=== PATIENT | female | born 1955 | race Caucasian/White ===

== ENCOUNTER 2017-01-14 14:34 | Outpatient (CLI) | payer MEDICARE ==
--- NOTE | 2017-01-14 16:27 | RAD ---
KUB: Date: 01/14/17 COMPARISON: 03/05/15. HISTORY: Nephrolithiasis. FINDINGS: Large volume stool is seen throughout the colon, limiting assessment of the renal shadows. The rectu m appears filled and expanded with stool, which may signify fecal impaction. There is degenerative c hange involving bilateral hips. Catheter tubing overlies the lower pelvis, incompletely imaged. No o bvious calcification overlies either renal shadow. IMPRESSION: Prominent stool within the colon as detailed above. No obvious renal stone is noted, although assess ment is limited on the basis of the large stool burden. POS: [facility]
== END 2017-01-14 14:35 | disposition home or self-care (01) ==
LOC: RAD 14:34
PROVIDERS: ATTEND Internal Medicine
DX: N20.0 Calculus of kidney (principal)
CPT/HCPCS: 74000

== ENCOUNTER 2021-10-19 13:39 | Emergency (ER) | payer MEDICARE ==
[2021-10-19 15:33] LABS: #Eosinphils 0.2 thou/uL (0.0-0.7); #Monocytes 0.3 thou/uL (0.11-0.59); #Neutrophils 3.1 thou/uL (1.40-6.50); %Basophils 0.3 % (0.0-1.0); %Eosinophils 3.8 % (0.0-10.0); %Lymphocytes 22.1 % (21.0-51.0); %Monocytes 5.7 % (0.0-10.0); %Neutrophils 68.2 % (42.0-75.0); Hemoglobin 14.4 g/dL (12.0-16.0); Mean Corpuscular HGB CONC 32.7 g/dL (32.0-36.0); Mean Corpuscular Hemoglobin 29.2 pg (27.0-31.0); Mean Corpuscular Volume 89.5 fL (78.0-98.0); Mean Platelet Volume 6.9 fL (7.4-10.4); Platelet Count 128 thou/uL (130-400); RBC Distribution Width 12.3 % (11.5-14.5); Red Blood Cell (RBC) Count 4.91 mill/uL (4.20-5.40); White Blood Cell (WBC) Count 4.5 thou/uL (4.8-10.8)
[2021-10-19 15:39] LABS: Bacteria/HPF 4+ HPF (None Seen); Bilirubin Negative (Negative); Blood, Urine 3+ (Negative); Clarity Turbid (Clear); Glucose, Urine (Dipstick) Normal (Negative); Ketone, Urine Negative (Negative); Leukocyte 500 Leu/uL (Negative); Nitrite Negative (Negative); Protein, Urine (Dipstick) 70 mg/dL (Neg-Trace); RBC/HPF Greater than 50 HPF (0-3); Specific Gravity, Urine 1.016 (1.002-1.036); Squamous Epithelial 0-3 HPF (0-3); Urobilinogen Normal mg/dL (Less than 2); WBC/HPF Greater than 50 HPF (0-3); pH, Urine 7.5 (5.0-9.0)
[2021-10-19 15:52] LABS: Anion Gap 15 mmol/L (10-20); BUN (Urea Nitrogen) 12 mg/dL (9.8-20.1); Calc. Creatinine Clearance 0 mL/min (70-130); Carbon Dioxide 26 mmol/L (23-31); Chloride 99 mmol/L (98-107); Potassium 4.2 mmol/L (3.5-5.1); Sodium 136 mmol/L (136-145)
[2021-10-19 15:53] LABS: ALT (SGPT) 11 U/L (8-55); AST (SGOT) 12 U/L (5-34); Alkaline Phosphatase 85 U/L (40-110); Bilirubin, Total 0.8 mg/dL (0.2-1.2); Calcium 9.2 mg/dL (7.8-10.44); Estimated GFR 98; Globulin 3.2 g/dL (2.4-3.5); Glucose 122 mg/dL (80-115); Protein, Total 7.2 g/dL (5.8-8.1)
[2021-10-19] MEDS ORDERED: Ketorolac Tromethamine 30 MG/ML VIAL ONE (16:11)
[2021-10-19] MEDS ORDERED: Nitrofurantoin Monohyd/M-Cryst 100 MG CAP PO SCH (16:30)
== END 2021-10-19 16:57 | disposition home or self-care (01) ==
LOC: ERS 13:39
DX: N39.0 Urinary tract infection, site not specified (principal); E11.9 Type 2 diabetes mellitus without complications; E78.5 Hyperlipidemia, unspecified; E78.1 Pure hyperglyceridemia
CPT/HCPCS: 36415; 80053; 81003; 81015; 85025; 96372; 99283; J1885

== ENCOUNTER 2021-11-20 16:24 | Outpatient (CLI) | payer MEDICARE | END 2021-11-20 16:25 | disposition home or self-care (01) | LOC: LABBT 16:24 | PROVIDERS: ATTEND Urology | DX: R33.9 Retention of urine, unspecified (principal); N31.9 Neuromuscular dysfunction of bladder, unspecified; N20.0 Calculus of kidney; Z20.822 Contact with and (suspected) exposure to COVID-19 | CPT/HCPCS: 87811 ==

== ENCOUNTER 2021-11-24 08:46 | Day surgery (SDC) | payer MEDICARE ==
[2021-11-24 08:44] LABS: #Eosinphils 0.3 thou/uL (0.0-0.7); #Lymphocytes 1.4 thou/uL (1.20-3.40); #Monocytes 0.3 thou/uL (0.11-0.59); %Basophils 0.2 % (0.0-1.0); %Eosinophils 4.3 % (0.0-10.0); %Lymphocytes 23.3 % (21.0-51.0); %Monocytes 4.9 % (0.0-10.0); %Neutrophils 67.4 % (42.0-75.0); Hemoglobin 14.1 g/dL (12.0-16.0); Mean Corpuscular HGB CONC 32.2 g/dL (32.0-36.0); Mean Corpuscular Hemoglobin 29.2 pg (27.0-31.0); Mean Corpuscular Volume 90.5 fL (78.0-98.0); Mean Platelet Volume 6.9 fL (7.4-10.4); Platelet Count 139 thou/uL (130-400); RBC Distribution Width 12.1 % (11.5-14.5); Red Blood Cell (RBC) Count 4.84 mill/uL (4.20-5.40); White Blood Cell (WBC) Count 5.9 thou/uL (4.8-10.8)
[2021-11-24 08:58] LABS: Prothrombin Time 13.4 sec (12.0-14.7)
[2021-11-24 10:02] VITALS: BP 135/79; TEMP 98; BMI 21.7
[2021-11-24] MEDS ORDERED: Sodium Bicarbonate 2.5 MEQ/5 ML VIAL ONE (10:05)
[2021-11-24] MEDS ORDERED: Midazolam HCl 2 mg/2 ml Vial ONE (10:05)
[2021-11-24] MEDS ORDERED: Hyoscyamine Sulfate SL 0.125 mg Tablet SL SCH (11:45)
== END 2021-11-24 13:00 | disposition home or self-care (01) ==
LOC: CT 08:46
PROVIDERS: ATTEND Urology
DX: N31.9 Neuromuscular dysfunction of bladder, unspecified (principal); R33.9 Retention of urine, unspecified; M89.58 Osteolysis, other site; K58.9 Irritable bowel syndrome, unspecified; E78.5 Hyperlipidemia, unspecified; Z91.011 Allergy to milk products; Z91.040 Latex allergy status; Z79.899 Other long term (current) drug therapy; Z88.0 Allergy status to penicillin; Z88.1 Allergy status to other antibiotic agents; Z88.5 Allergy status to narcotic agent
CPT/HCPCS: 76380; 85025; 85610; 85730; J2250

== ENCOUNTER 2022-10-06 09:19 | Inpatient (IN) | payer MEDICARE, OTHER ==
[2022-10-06 09:57] LABS: #Eosinphils 0.2 thou/uL (0.0-0.7); #Monocytes 0.4 thou/uL (0.11-0.59); #Neutrophils 4.3 thou/uL (1.40-6.50); %Basophils 0.3 % (0.0-1.0); %Eosinophils 3.1 % (0.0-10.0); %Lymphocytes 22.7 % (21.0-51.0); %Monocytes 5.5 % (0.0-10.0); %Neutrophils 68.1 % (42.0-75.0); Hemoglobin 13.9 g/dL (12.0-16.0); Mean Corpuscular HGB CONC 33.3 g/dL (32.0-36.0); Mean Corpuscular Hemoglobin 29.3 pg (27.0-31.0); Platelet Count 159 10x3/uL (130-400); RBC Distribution Width 12.2 % (11.5-14.5); Red Blood Cell (RBC) Count 4.74 mill/uL (4.20-5.40); White Blood Cell (WBC) Count 6.4 10x3/uL (4.8-10.8)
[2022-10-06 10:27] LABS: ALT (SGPT) 14 U/L (8-55); AST (SGOT) 13 U/L (5-34); Alkaline Phosphatase 75 U/L (40-110); Anion Gap 16 mmol/L (10-20); BUN (Urea Nitrogen) 16 mg/dL (9.8-20.1); Bilirubin, Total 0.5 mg/dL (0.2-1.2); Calc. Creatinine Clearance 0 mL/min (70-130); Calcium 9.7 mg/dL (7.8-10.44); Carbon Dioxide 27 mmol/L (23-31); Chloride 100 mmol/L (98-107); Estimated GFR 80; Globulin 3.2 g/dL (2.4-3.5); Glucose 186 mg/dL (80-115); Potassium 3.9 mmol/L (3.5-5.1); Protein, Total 7.2 g/dL (5.8-8.1); Sodium 139 mmol/L (136-145)
[2022-10-06] MEDS ORDERED: Aztreonam 1 GM in Sodium Chloride 0.9% 100 ML IVPB SCH ×2 (11:45→21:00)
[2022-10-06] MEDS ORDERED: Dextrose 50% Abboject 50 ML SYRINGE SLOW IVP PRN (12:33)
[2022-10-06] MEDS ORDERED: Dextrose 5% in Water 1,000 ML IV PRN (12:33)
[2022-10-06] MEDS ORDERED: Ondansetron ODT 4 MG TAB PO PRN (12:33)
[2022-10-06] MEDS ORDERED: Glucagon 1 MG/ML KIT IM PRN (12:33)
[2022-10-06] MEDS ORDERED: hydrALAZINE 20 MG/ML VIAL SLOW IVP PRN (12:33)
[2022-10-06] MEDS ORDERED: Acetaminophen 325 MG TAB PO PRN (12:33)
[2022-10-06] MEDS ORDERED: HumaLOG 300 UNITS/3 ML VIAL SC PRN ×2 (12:33)
[2022-10-06] MEDS ORDERED: Baclofen 10 MG TAB PO PRN (12:36)
[2022-10-06 12:51] LABS: Lactic Acid 0.7 mmol/L (0.5-2.2)
[2022-10-06 17:11] VITALS: BMI 20.1
[2022-10-07 12:25] VITALS: BP 124/79; TEMP 97.8
== END 2022-10-07 12:23 | disposition home or self-care (01) | DRG 592 ==
LOC: ERS 09:19 → T4-A 11:57
PROVIDERS: ADMIT Internal Medicine; ATTEND Internal Medicine
DX: L98.499 Non-pressure chronic ulcer of skin of other sites with unspecified severity (principal); G82.50 Quadriplegia, unspecified; G37.3 Acute transverse myelitis in demyelinating disease of central nervous system; E11.9 Type 2 diabetes mellitus without complications; E78.5 Hyperlipidemia, unspecified; N31.9 Neuromuscular dysfunction of bladder, unspecified; F32.A Depression, unspecified; I10 Essential (primary) hypertension; R33.9 Retention of urine, unspecified; L89.319 Pressure ulcer of right buttock, unspecified stage; Z98.890 Other specified postprocedural states; Z82.49 Family history of ischemic heart disease and other diseases of the circulatory system; Z99.3 Dependence on wheelchair; Z88.0 Allergy status to penicillin; Z88.1 Allergy status to other antibiotic agents; Z88.5 Allergy status to narcotic agent; Z91.040 Latex allergy status; Z91.011 Allergy to milk products; Z79.899 Other long term (current) drug therapy; Z74.01 Bed confinement status
CPT/HCPCS: 36415; 80053; 83605; 85025; 87040; 96360; 97139; J0457; J3490

== ENCOUNTER 2022-10-12 10:36 | Outpatient (CLI) | payer MEDICARE | END 2022-10-12 10:37 | disposition home or self-care (01) | LOC: DTY/OP 10:36 | PROVIDERS: ATTEND Surgery | DX: K58.1 Irritable bowel syndrome with constipation (principal); G82.20 Paraplegia, unspecified | CPT/HCPCS: 97802 ==

== ENCOUNTER 2022-11-27 16:46 | Emergency (ER) | payer MEDICARE ==
[2022-11-27] MEDS ORDERED: Acetaminophen 500 MG TAB ONE (17:13)
[2022-11-27 17:21] LABS: #Eosinphils 0.2 thou/uL (0.0-0.7); #Monocytes 0.6 thou/uL (0.11-0.59); #Neutrophils 5.9 thou/uL (1.40-6.50); %Basophils 0.3 % (0.0-1.0); %Lymphocytes 14.7 % (21.0-51.0); %Monocytes 7.2 % (0.0-10.0); %Neutrophils 75.5 % (42.0-75.0); Hematocrit 36.5 % (36.0-47.0); Hemoglobin 11.8 g/dL (12.0-16.0); Mean Corpuscular HGB CONC 32.3 g/dL (32.0-36.0); Mean Corpuscular Hemoglobin 28.5 pg (27.0-31.0); Mean Corpuscular Volume 88.2 fl (78.0-98.0); Mean Platelet Volume 8.6 fL (7.4-10.4); Platelet Count 247 10x3/uL (130-400); RBC Distribution Width 12.5 % (11.5-14.5); Red Blood Cell (RBC) Count 4.14 mill/uL (4.20-5.40); White Blood Cell (WBC) Count 7.9 10x3/uL (4.8-10.8)
[2022-11-27 17:50] LABS: ALT (SGPT) 13 U/L (8-55); AST (SGOT) 12 U/L (5-34); Albumin 3.5 g/dL (3.4-4.8); Alkaline Phosphatase 85 U/L (40-110); Anion Gap 15 mmol/L (10-20); BUN (Urea Nitrogen) 12 mg/dL (9.8-20.1); Bilirubin, Total 0.3 mg/dL (0.2-1.2); Calc. Creatinine Clearance 0 mL/min (70-130); Calcium 9.4 mg/dL (7.8-10.44); Carbon Dioxide 29 mmol/L (23-31); Chloride 96 mmol/L (98-107); Estimated GFR 94; Globulin 3.8 g/dL (2.4-3.5); Glucose 137 mg/dL (80-115); Potassium 4.4 mmol/L (3.5-5.1); Protein, Total 7.3 g/dL (5.8-8.1); Sodium 136 mmol/L (136-145)
[2022-11-27 19:23] LABS: Bacteria/HPF 2+ HPF (None Seen); Bilirubin Negative (Negative); Blood, Urine Trace (Negative); CAUTI Indications for Culture Alt mental st,lethar; Clarity Clear (Clear); Glucose, Urine (Dipstick) Normal (Negative); Ketone, Urine Negative (Negative); Leukocyte 250 Leu/uL (Negative); Nitrite Negative (Negative); Protein, Urine (Dipstick) Negative (Neg-Trace); RBC/HPF 0-3 HPF (0-3); Specific Gravity, Urine 1.006 (1.002-1.036); Squamous Epithelial 0-3 HPF (0-3); Urobilinogen Normal mg/dL (Less than 2); pH, Urine 6.5 (5.0-9.0)
[2022-11-27 19:24] LABS: Urine Culture Reflex No No
== END 2022-11-27 20:00 | disposition home or self-care (01) ==
LOC: ERS 16:46
DX: N39.0 Urinary tract infection, site not specified (principal); E11.9 Type 2 diabetes mellitus without complications; I10 Essential (primary) hypertension; E78.2 Mixed hyperlipidemia
CPT/HCPCS: 80053; 81001; 83605; 85025; 85610; 85730; 87040; 87086; 94760; 96361; 96365; J0744

== ENCOUNTER 2022-12-14 09:12 | Emergency (ER) | payer MEDICARE ==
[2022-12-14 10:29] LABS: #Eosinphils 0.1 thou/uL (0.0-0.7); #Monocytes 0.4 thou/uL (0.11-0.59); #Neutrophils 8.7 thou/uL (1.40-6.50); %Basophils 0.2 % (0.0-1.0); %Eosinophils 0.8 % (0.0-10.0); %Monocytes 3.9 % (0.0-10.0); %Neutrophils 85.4 % (42.0-75.0); Hematocrit 34.1 % (36.0-47.0); Hemoglobin 10.5 g/dL (12.0-16.0); Mean Corpuscular HGB CONC 30.8 g/dL (32.0-36.0); Mean Corpuscular Hemoglobin 27.9 pg (27.0-31.0); Mean Corpuscular Volume 90.5 fl (78.0-98.0); Mean Platelet Volume 8.7 fL (7.4-10.4); Platelet Count 278 10x3/uL (130-400); RBC Distribution Width 13.1 % (11.5-14.5); Red Blood Cell (RBC) Count 3.77 mill/uL (4.20-5.40); White Blood Cell (WBC) Count 10.1 10x3/uL (4.8-10.8)
[2022-12-14 10:55] LABS: Bilirubin Negative (Negative); Blood, Urine Small (Negative); Glucose, Urine (Dipstick) Negative (Negative); Ketone, Urine > or equal to 80 mg/dL (Negative); Leukocyte Large (Negative); Nitrite Negative (Negative); Protein, Urine (Dipstick) Negative (Neg-Trace); Urobilinogen 0.2 mg/dL (Less than 2)
[2022-12-14 10:58] LABS: ALT (SGPT) 12 U/L (8-55); AST (SGOT) 11 U/L (5-34); Albumin 3.2 g/dL (3.4-4.8); Alkaline Phosphatase 84 U/L (40-110); Anion Gap 16 mmol/L (10-20); BUN (Urea Nitrogen) 13 mg/dL (9.8-20.1); Bilirubin, Total 0.4 mg/dL (0.2-1.2); Calc. Creatinine Clearance 0 mL/min (70-130); Calcium 9.3 mg/dL (7.8-10.44); Carbon Dioxide 27 mmol/L (23-31); Chloride 94 mmol/L (98-107); Estimated GFR 98; Globulin 4.2 g/dL (2.4-3.5); Glucose 86 mg/dL (80-115); Potassium 4.2 mmol/L (3.5-5.1); Protein, Total 7.4 g/dL (5.8-8.1); Sodium 133 mmol/L (136-145)
[2022-12-14 11:08] LABS: Clarity Clear (Clear)
[2022-12-14 11:09] LABS: CAUTI Indications for Culture Alt mental st,lethar; RBC/HPF None Seen HPF (0-3); WBC/HPF None Seen HPF (0-3)
[2022-12-14 11:10] LABS: Bacteria/HPF 2+ HPF (None Seen); Squamous Epithelial 0-3 HPF (0-3); Urine Culture Reflex No No
[2022-12-14] MEDS ORDERED: Acetaminophen 500 MG TAB ONE (11:31)
[2022-12-14] MEDS ORDERED: Fosfomycin 3 GM/Packet PO SCH (13:00)
== END 2022-12-14 13:09 | disposition home or self-care (01) ==
LOC: ERS 09:12
DX: N39.0 Urinary tract infection, site not specified (principal); R50.9 Fever, unspecified; E11.9 Type 2 diabetes mellitus without complications; I95.9 Hypotension, unspecified; Z79.82 Long term (current) use of aspirin; Z79.899 Other long term (current) drug therapy
CPT/HCPCS: 36415; 80053; 81001; 83605; 85025; 87040; 87077; 87086; 87186; 96360

== ENCOUNTER 2023-01-17 10:49 | Emergency (ER) | payer MEDICARE ==
[2023-01-17 11:48] LABS: #Eosinphils 0.3 thou/uL (0.0-0.7); #Monocytes 0.3 thou/uL (0.11-0.59); #Neutrophils 3.3 thou/uL (1.40-6.50); %Basophils 0.3 % (0.0-1.0); %Eosinophils 5.3 % (0.0-10.0); %Lymphocytes 31.6 % (21.0-51.0); %Monocytes 5.8 % (0.0-10.0); %Neutrophils 56.7 % (42.0-75.0); Hematocrit 33.2 % (36.0-47.0); Hemoglobin 10.2 g/dL (12.0-16.0); Mean Corpuscular HGB CONC 30.7 g/dL (32.0-36.0); Mean Corpuscular Hemoglobin 27.4 pg (27.0-31.0); Mean Corpuscular Volume 89.2 fl (78.0-98.0); Mean Platelet Volume 9.5 fL (7.4-10.4); Platelet Count 228 10x3/uL (130-400); RBC Distribution Width 14.3 % (11.5-14.5); Red Blood Cell (RBC) Count 3.72 mill/uL (4.20-5.40); White Blood Cell (WBC) Count 5.8 10x3/uL (4.8-10.8)
[2023-01-17 12:14] LABS: ALT (SGPT) 12 U/L (8-55); AST (SGOT) 15 U/L (5-34); Albumin 3.4 g/dL (3.4-4.8); Alkaline Phosphatase 77 U/L (40-110); Anion Gap 13 mmol/L (10-20); BUN (Urea Nitrogen) 14 mg/dL (9.8-20.1); Bilirubin, Total 0.3 mg/dL (0.2-1.2); Calc. Creatinine Clearance 0 mL/min (70-130); Calcium 8.7 mg/dL (7.8-10.44); Carbon Dioxide 29 mmol/L (23-31); Chloride 101 mmol/L (98-107); Estimated GFR 91; Globulin 3.3 g/dL (2.4-3.5); Glucose 147 mg/dL (80-115); Potassium 4.3 mmol/L (3.5-5.1); Protein, Total 6.7 g/dL (5.8-8.1); Sodium 139 mmol/L (136-145)
== END 2023-01-17 17:00 | disposition home or self-care (01) ==
LOC: ERS 10:49
DX: Z74.2 Need for assistance at home and no other household member able to render care (principal); E11.9 Type 2 diabetes mellitus without complications; E78.5 Hyperlipidemia, unspecified; Z86.73 Personal history of transient ischemic attack (TIA), and cerebral infarction without residual deficits; Z79.82 Long term (current) use of aspirin
CPT/HCPCS: 80053; 85025; 99283

== ENCOUNTER 2023-02-09 19:18 | Inpatient (IN) | payer MEDICARE ==
[2023-02-09] MEDS ORDERED: Ibuprofen 200 MG TAB ONE (20:01)
[2023-02-09 20:09] LABS: #Eosinphils 0.1 thou/uL (0.0-0.7); #Monocytes 0.7 thou/uL (0.11-0.59); #Neutrophils 9.5 thou/uL (1.40-6.50); %Basophils 0.3 % (0.0-1.0); %Eosinophils 0.8 % (0.0-10.0); %Lymphocytes 11.3 % (21.0-51.0); %Monocytes 6.3 % (0.0-10.0); %Neutrophils 80.8 % (42.0-75.0); Hematocrit 31.9 % (36.0-47.0); Mean Corpuscular HGB CONC 31.3 g/dL (32.0-36.0); Mean Corpuscular Hemoglobin 26.5 pg (27.0-31.0); Mean Corpuscular Volume 84.4 fl (78.0-98.0); Mean Platelet Volume 9.2 fL (7.4-10.4); Platelet Count 241 10x3/uL (130-400); Red Blood Cell (RBC) Count 3.78 mill/uL (4.20-5.40); White Blood Cell (WBC) Count 11.7 10x3/uL (4.8-10.8)
[2023-02-09] MEDS ORDERED: Ertapenem 1 GM in Sodium Chloride 0.9% 100 ML IVPB SCH (20:15)
[2023-02-09] MEDS ORDERED: DAPTOmycin 500 MG in Sodium Chloride 0.9% 50 ML IVPB SCH (20:15)
[2023-02-09 20:31] LABS: ALT (SGPT) 9 U/L (8-55); AST (SGOT) 11 U/L (5-34); Albumin 3.6 g/dL (3.4-4.8); Alkaline Phosphatase 77 U/L (40-110); Anion Gap 14 mmol/L (10-20); BUN (Urea Nitrogen) 19 mg/dL (9.8-20.1); Bilirubin, Total 0.2 mg/dL (0.2-1.2); Calc. Creatinine Clearance 0 mL/min (70-130); Calcium 9.3 mg/dL (7.8-10.44); Carbon Dioxide 24 mmol/L (23-31); Chloride 100 mmol/L (98-107); Estimated GFR 96; Globulin 3.5 g/dL (2.4-3.5); Glucose 160 mg/dL (80-115); Potassium 4.1 mmol/L (3.5-5.1); Protein, Total 7.1 g/dL (5.8-8.1); Sodium 134 mmol/L (136-145)
[2023-02-09] MEDS ORDERED: Ondansetron PF 4 MG/2 ML Vial ONE (20:45)
[2023-02-09 21:54] LABS: Actual Bicarbonate (HCO3v) 23.1 mEq/L (22-28); Base Excess 0.7 mEq/L (-2.0 to +3.0); Chloride (VBG) 99 mmol/L (98-106); Hematocrit-VBG 34 % (36.0-47.0); Hemoglobin (Hb) 11.4 g/dL (11.7-16.1); Potassium (VBG) 4.18 mmol/L (3.70-5.30); Sodium 134 mmol/L (133-146); pH (venous) 7.505 (7.32-7.43)
[2023-02-09 21:58] LABS: Bacteria/HPF None Seen HPF (None Seen); Bilirubin Negative (Negative); Blood, Urine 2+ (Negative); CAUTI Indications for Culture Immunosuppressed; Calcium Oxalate Crystals 1+ HPF (None Seen); Clarity Clear (Clear); Glucose, Urine (Dipstick) Normal (Negative); Ketone, Urine Negative (Negative); Leukocyte 500 Leu/uL (Negative); Nitrite Negative (Negative); Protein, Urine (Dipstick) 30 mg/dL (Neg-Trace); RBC/HPF 21-50 HPF (0-3); Specific Gravity, Urine 1.026 (1.002-1.036); Squamous Epithelial 0-3 HPF (0-3); Urobilinogen Normal mg/dL (Less than 2); WBC/HPF 21-50 HPF (0-3); pH, Urine 5.5 (5.0-9.0)
[2023-02-09 21:59] LABS: Urine Culture Reflex Yes Yes
[2023-02-09] MEDS ORDERED: Promethazine 25 MG TAB ONE (23:46)
[2023-02-09] MEDS ORDERED: Calcium Carbonate 500 MG ChewTAB PO PRN (23:54)
[2023-02-10] MEDS ORDERED: LACTASE 9000 UNIT PO PRN (00:28)
[2023-02-10 00:38] VITALS: BMI 20.9
[2023-02-10 06:27] LABS: #Eosinphils 0.2 thou/uL (0.0-0.7); #Monocytes 0.5 thou/uL (0.11-0.59); #Neutrophils 6.2 thou/uL (1.40-6.50); %Basophils 0.4 % (0.0-1.0); %Eosinophils 1.9 % (0.0-10.0); %Monocytes 6.3 % (0.0-10.0); Hematocrit 29.7 % (36.0-47.0); Mean Corpuscular HGB CONC 30.3 g/dL (32.0-36.0); Mean Corpuscular Hemoglobin 26.1 pg (27.0-31.0); Mean Corpuscular Volume 86.1 fl (78.0-98.0); Mean Platelet Volume 9.4 fL (7.4-10.4); Platelet Count 202 10x3/uL (130-400); RBC Distribution Width 14.1 % (11.5-14.5); Red Blood Cell (RBC) Count 3.45 mill/uL (4.20-5.40); White Blood Cell (WBC) Count 8.3 10x3/uL (4.8-10.8)
[2023-02-10 06:57] LABS: Anion Gap 15 mmol/L (10-20); BUN (Urea Nitrogen) 17 mg/dL (9.8-20.1); Calc. Creatinine Clearance 83 mL/min (70-130); Calcium 8.7 mg/dL (7.8-10.44); Carbon Dioxide 24 mmol/L (23-31); Estimated GFR 98; Glucose 109 mg/dL (80-115)
[2023-02-10 07:19] LABS: Chloride 105 mmol/L (98-107); Potassium 4.4 mmol/L (3.5-5.1); Sodium 140 mmol/L (136-145)
[2023-02-10] MEDS ORDERED: DAPTOMYCIN IV SCH (09:00)
[2023-02-10] MEDS ORDERED: Non-Formulary Item 1 EACH (Ertapenem 1 GM Vial) IVPB SCH (09:00)
[2023-02-10] MEDS ORDERED: SOD CHLOR 0.9% IV SCH (09:00)
[2023-02-10] MEDS ORDERED: FLU VACC QS2023(65UP)/MF59C/PF 60 MCG/0.5 ML SYRINGE IM ONE (09:00)
[2023-02-10] MEDS ORDERED: [UNRECOGNIZED DRUG - OTHER] IV SCH (09:00)
[2023-02-10] MEDS: Polyethylene Glycol 3350 17 GM Packet PO SCH (10:48)
[2023-02-10] MEDS: Multivitamin w/Zinc Stress 1 TAB PO SCH (11:11)
[2023-02-10] MEDS: Multivitamin W/ Minerals 1 TAB PO SCH (11:11)
[2023-02-10] MEDS: Vitamin E 400 UNITS CAP PO SCH (11:11)
[2023-02-10] MEDS: Ferrous Sulfate 325 MG TAB PO SCH (11:14)
[2023-02-10] MEDS: Acetaminophen 325 MG TAB PO PRN ×2 (11:19→18:49)
[2023-02-10] MEDS: Baclofen 10 MG TAB PO PRN ×2 (12:32→18:44)
[2023-02-10] MEDS ORDERED: DAPTOmycin 500 MG in Sodium Chloride 0.9% 50 ML IVPB SCH (17:00)
[2023-02-10] MEDS: DAPTOmycin 500 MG in Sodium Chloride 0.9% 50 ML IVPB SCH (17:55)
[2023-02-10] MEDS ORDERED: Ertapenem 1 GM in Sodium Chloride 0.9% 100 ML IVPB SCH (18:00)
[2023-02-10] MEDS: Ondansetron ODT 4 MG TAB PO PRN (18:44)
[2023-02-10] MEDS: Ertapenem 1 GM in Sodium Chloride 0.9% 100 ML IVPB SCH (18:52)
[2023-02-10] MEDS: Atorvastatin Calcium 40 MG TAB PO SCH (20:25)
[2023-02-11] MEDS: Acetaminophen 325 MG TAB PO PRN (02:41)
[2023-02-11] MEDS: Baclofen 10 MG TAB PO PRN ×2 (02:42→19:59)
[2023-02-11 07:53] LABS: #Eosinphils 0.3 thou/uL (0.0-0.7); #Monocytes 0.3 thou/uL (0.11-0.59); #Neutrophils 3.2 thou/uL (1.40-6.50); %Basophils 0.5 % (0.0-1.0); %Eosinophils 5.3 % (0.0-10.0); %Lymphocytes 31.5 % (21.0-51.0); %Neutrophils 56.5 % (42.0-75.0); Hematocrit 30.1 % (36.0-47.0); Hemoglobin 9.1 g/dL (12.0-16.0); Mean Corpuscular HGB CONC 30.2 g/dL (32.0-36.0); Mean Corpuscular Hemoglobin 26.2 pg (27.0-31.0); Mean Corpuscular Volume 86.7 fl (78.0-98.0); Platelet Count 201 10x3/uL (130-400); RBC Distribution Width 13.9 % (11.5-14.5); Red Blood Cell (RBC) Count 3.47 mill/uL (4.20-5.40); White Blood Cell (WBC) Count 5.7 10x3/uL (4.8-10.8)
[2023-02-11 08:05] LABS: Anion Gap 10 mmol/L (10-20); BUN (Urea Nitrogen) 12 mg/dL (9.8-20.1); Calc. Creatinine Clearance 89 mL/min (70-130); Carbon Dioxide 29 mmol/L (23-31); Chloride 103 mmol/L (98-107); Estimated GFR 100; Glucose 84 mg/dL (80-115); Sodium 138 mmol/L (136-145)
[2023-02-11] MEDS: Ferrous Sulfate 325 MG TAB PO SCH (08:31)
[2023-02-11] MEDS: Polyethylene Glycol 3350 17 GM Packet PO SCH (08:31)
[2023-02-11] MEDS: Multivitamin w/Zinc Stress 1 TAB PO SCH (08:32)
[2023-02-11] MEDS: Vitamin E 400 UNITS CAP PO SCH (08:32)
[2023-02-11] MEDS: Multivitamin W/ Minerals 1 TAB PO SCH (08:32)
[2023-02-11 10:27] LABS: SARS-CoV-2 NAA Rapid Test Not Detected (NotDetected)
[2023-02-11] MEDS: DAPTOmycin 500 MG in Sodium Chloride 0.9% 50 ML IVPB SCH (17:20)
[2023-02-11] MEDS: Ondansetron ODT 4 MG TAB PO PRN (18:01)
[2023-02-11] MEDS: Ertapenem 1 GM in Sodium Chloride 0.9% 100 ML IVPB SCH (18:02)
[2023-02-11] MEDS: Atorvastatin Calcium 40 MG TAB PO SCH (19:59)
[2023-02-12] MEDS: Acetaminophen 325 MG TAB PO PRN ×2 (02:30→11:57)
[2023-02-12] MEDS: Baclofen 10 MG TAB PO PRN ×3 (02:30→15:37)
[2023-02-12 06:51] LABS: #Eosinphils 0.3 thou/uL (0.0-0.7); #Monocytes 0.3 thou/uL (0.11-0.59); #Neutrophils 2.6 thou/uL (1.40-6.50); %Basophils 0.6 % (0.0-1.0); %Lymphocytes 33.3 % (21.0-51.0); %Monocytes 6.4 % (0.0-10.0); %Neutrophils 52.3 % (42.0-75.0); Hematocrit 31.6 % (36.0-47.0); Hemoglobin 9.7 g/dL (12.0-16.0); Mean Corpuscular HGB CONC 30.7 g/dL (32.0-36.0); Mean Corpuscular Hemoglobin 26.4 pg (27.0-31.0); Mean Corpuscular Volume 86.1 fl (78.0-98.0); Mean Platelet Volume 8.9 fL (7.4-10.4); Platelet Count 238 10x3/uL (130-400); RBC Distribution Width 13.7 % (11.5-14.5); Red Blood Cell (RBC) Count 3.67 mill/uL (4.20-5.40); White Blood Cell (WBC) Count 4.9 10x3/uL (4.8-10.8)
[2023-02-12 07:19] LABS: Anion Gap 15 mmol/L (10-20); BUN (Urea Nitrogen) 14 mg/dL (9.8-20.1); Calc. Creatinine Clearance 79 mL/min (70-130); Calcium 8.6 mg/dL (7.8-10.44); Carbon Dioxide 25 mmol/L (23-31); Chloride 101 mmol/L (98-107); Estimated GFR 97; Glucose 115 mg/dL (80-115); Potassium 4.2 mmol/L (3.5-5.1); Sodium 137 mmol/L (136-145)
[2023-02-12] MEDS: Vitamin E 400 UNITS CAP PO SCH (09:08)
[2023-02-12] MEDS: Polyethylene Glycol 3350 17 GM Packet PO SCH (09:08)
[2023-02-12] MEDS: Multivitamin w/Zinc Stress 1 TAB PO SCH (09:08)
[2023-02-12] MEDS: Ferrous Sulfate 325 MG TAB PO SCH (09:10)
[2023-02-12] MEDS: Multivitamin W/ Minerals 1 TAB PO SCH (09:10)
[2023-02-12] MEDS: Ondansetron ODT 4 MG TAB PO PRN (09:33)
[2023-02-12] MEDS: Lactated Ringer's 1,000 ML IV SCH ×2 (10:54→23:45)
[2023-02-12] MEDS ORDERED: Meropenem 1 GM in Sodium Chloride 0.9% 100 ML IVPB SCH (13:15)
[2023-02-12] MEDS: DAPTOmycin 500 MG in Sodium Chloride 0.9% 50 ML IVPB SCH (16:49)
[2023-02-12] MEDS: Atorvastatin Calcium 40 MG TAB PO SCH (20:21)
[2023-02-12] MEDS: Meropenem 1 GM in Sodium Chloride 0.9% 100 ML IVPB SCH (20:23)
[2023-02-13] MEDS: Baclofen 10 MG TAB PO PRN ×3 (04:26→20:33)
[2023-02-13] MEDS: Acetaminophen 325 MG TAB PO PRN ×2 (04:26→16:42)
[2023-02-13] MEDS: Meropenem 1 GM in Sodium Chloride 0.9% 100 ML IVPB SCH ×3 (04:27→20:33)
[2023-02-13] MEDS ORDERED: EPINEPHrine 1 MG/ML VIAL ONE (06:42)
[2023-02-13] MEDS ORDERED: Bupivacaine 0.25% HCL 30 ML VIAL ONE (06:42)
[2023-02-13] MEDS ORDERED: fentaNYL PF 100 MCG/2 ML SYRINGE ONE (07:00)
[2023-02-13] MEDS ORDERED: SUGAMMADEX SODIUM 200 MG/2 ML VIAL ONE (07:00)
[2023-02-13] MEDS ORDERED: Famotidine/PF 20 mg/2ml Vial ONE (07:00)
[2023-02-13] MEDS: Ferrous Sulfate 325 MG TAB PO SCH (07:06)
[2023-02-13] MEDS: Multivitamin W/ Minerals 1 TAB PO SCH (07:06)
[2023-02-13] MEDS: Multivitamin w/Zinc Stress 1 TAB PO SCH (07:06)
[2023-02-13] MEDS: Vitamin E 400 UNITS CAP PO SCH (07:06)
[2023-02-13] MEDS: Polyethylene Glycol 3350 17 GM Packet PO SCH (07:06)
[2023-02-13] MEDS ORDERED: Rocuronium Bromide 10 MG/ML (10ML VIAL) ONE (07:46)
[2023-02-13] MEDS ORDERED: PROPOFOL 200 MG/20 ML VIAL ONE (07:46)
[2023-02-13] MEDS ORDERED: PHENYLEPHRINE-NS 100 MCG/ML 10 ML SYRINGE ONE (07:46)
[2023-02-13] MEDS ORDERED: Dexamethasone 20 MG/5 ML VIAL ONE (07:46)
[2023-02-13] MEDS ORDERED: ePHEDrine Sulfate 50 MG/10 ML VIAL ONE (07:46)
[2023-02-13] MEDS ORDERED: Ondansetron PF 4 MG/2 ML Vial ONE (07:46)
[2023-02-13] MEDS ORDERED: Lidocaine 1% PF 5 ML VIAL ONE (07:46)
[2023-02-13] MEDS ORDERED: Promethazine HCl 25 MG/ML VIAL IM PRN (08:58)
[2023-02-13] MEDS ORDERED: Ondansetron HCl/PF 4 MG/2 ML Vial IVP PRN (08:58)
[2023-02-13] MEDS ORDERED: PACU-Morphine 4MG/ML VIAL SLOW IVP PRN (08:58)
[2023-02-13] MEDS ORDERED: Morphine Sulfate 2 MG/ML SYRINGE SLOW IVP PRN (08:58)
[2023-02-13] MEDS ORDERED: Morphine 2 MG/ML VIAL ONE ×2 (09:21→09:54)
[2023-02-13] MEDS: Lactated Ringer's 1,000 ML IV SCH (14:12)
[2023-02-13] MEDS ORDERED: Ketorolac Tromethamine 30 MG/ML VIAL IVP SCH (15:45)
[2023-02-13] MEDS: DAPTOmycin 500 MG in Sodium Chloride 0.9% 50 ML IVPB SCH (16:43)
[2023-02-13] MEDS: Ondansetron ODT 4 MG TAB PO PRN (16:43)
[2023-02-13] MEDS: Ketorolac Tromethamine 30 MG/ML VIAL IVP SCH (20:28)
[2023-02-13] MEDS: Atorvastatin Calcium 40 MG TAB PO SCH (20:33)
[2023-02-13] MEDS ORDERED: HYDROcodone/Acetaminophen 5/325 mg Tablet PO PRN (20:47)
[2023-02-13] MEDS ORDERED: Morphine 2 MG/ML VIAL SLOW IVP SCH (21:00)
[2023-02-14] MEDS: Baclofen 10 MG TAB PO PRN ×4 (00:38→22:25)
[2023-02-14] MEDS: Acetaminophen 500 MG TAB PO PRN (02:39)
[2023-02-14] MEDS: Ondansetron PF 4 MG/2 ML Vial IVP PRN ×2 (03:27→17:34)
[2023-02-14] MEDS: Ketorolac Tromethamine 30 MG/ML VIAL IVP SCH ×3 (03:50→14:33)
[2023-02-14] MEDS: Meropenem 1 GM in Sodium Chloride 0.9% 100 ML IVPB SCH ×3 (05:41→22:24)
[2023-02-14] MEDS ORDERED: Dexmedetomidine 200 MCG/2 ML VIAL ONE (06:52)
[2023-02-14] MEDS ORDERED: fentaNYL 50 mcg/mL 1 mL Vial ONE (06:52)
[2023-02-14] MEDS ORDERED: Meperidine HCl/PF 25 MG/ML VIAL ONE (06:53)
[2023-02-14] MEDS ORDERED: Famotidine/PF 20 mg/2ml Vial ONE (06:53)
[2023-02-14 08:01] LABS: #Eosinphils 0.1 thou/uL (0.0-0.7); #Monocytes 0.3 thou/uL (0.11-0.59); #Neutrophils 2.8 thou/uL (1.40-6.50); %Basophils 0.4 % (0.0-1.0); %Eosinophils 2.6 % (0.0-10.0); %Lymphocytes 29.1 % (21.0-51.0); %Monocytes 7.2 % (0.0-10.0); %Neutrophils 60.3 % (42.0-75.0); Hematocrit 30.8 % (36.0-47.0); Hemoglobin 9.8 g/dL (12.0-16.0); Mean Corpuscular HGB CONC 31.8 g/dL (32.0-36.0); Mean Corpuscular Hemoglobin 26.5 pg (27.0-31.0); Mean Corpuscular Volume 83.2 fl (78.0-98.0); Mean Platelet Volume 8.3 fL (7.4-10.4); Platelet Count 234 10x3/uL (130-400); RBC Distribution Width 13.3 % (11.5-14.5); White Blood Cell (WBC) Count 4.6 10x3/uL (4.8-10.8)
[2023-02-14 08:25] LABS: Anion Gap 10 mmol/L (10-20); BUN (Urea Nitrogen) 19 mg/dL (9.8-20.1); Calc. Creatinine Clearance 80 mL/min (70-130); Carbon Dioxide 31 mmol/L (23-31); Chloride 99 mmol/L (98-107); Estimated GFR 97; Glucose 146 mg/dL (80-115); Magnesium 1.9 mg/dL (1.6-2.6); Potassium 4.2 mmol/L (3.5-5.1); Sodium 136 mmol/L (136-145)
[2023-02-14] MEDS: Vitamin E 400 UNITS CAP PO SCH (09:11)
[2023-02-14] MEDS: Polyethylene Glycol 3350 17 GM Packet PO SCH (09:11)
[2023-02-14] MEDS: Multivitamin w/Zinc Stress 1 TAB PO SCH (09:11)
[2023-02-14] MEDS: Ferrous Sulfate 325 MG TAB PO SCH (09:11)
[2023-02-14] MEDS: Multivitamin W/ Minerals 1 TAB PO SCH (09:11)
[2023-02-14] MEDS: DAPTOmycin 500 MG in Sodium Chloride 0.9% 50 ML IVPB SCH (17:34)
[2023-02-14] MEDS: Atorvastatin Calcium 40 MG TAB PO SCH ×3 (22:24→22:39)
[2023-02-15] MEDS: Meropenem 1 GM in Sodium Chloride 0.9% 100 ML IVPB SCH ×3 (05:15→20:09)
[2023-02-15] MEDS: Acetaminophen 500 MG TAB PO PRN (05:15)
[2023-02-15 06:16] LABS: #Eosinphils 0.3 thou/uL (0.0-0.7); #Monocytes 0.3 thou/uL (0.11-0.59); %Basophils 0.4 % (0.0-1.0); %Eosinophils 6.3 % (0.0-10.0); %Lymphocytes 43.4 % (21.0-51.0); %Monocytes 6.1 % (0.0-10.0); %Neutrophils 43.1 % (42.0-75.0); Hematocrit 33.7 % (36.0-47.0); Hemoglobin 10.3 g/dL (12.0-16.0); Mean Corpuscular HGB CONC 30.6 g/dL (32.0-36.0); Mean Corpuscular Hemoglobin 26.4 pg (27.0-31.0); Mean Platelet Volume 8.8 fL (7.4-10.4); Platelet Count 255 10x3/uL (130-400); RBC Distribution Width 13.7 % (11.5-14.5); White Blood Cell (WBC) Count 4.6 10x3/uL (4.8-10.8)
[2023-02-15 06:23] LABS: Mean Corpuscular Volume 86.4 fl (78.0-98.0)
[2023-02-15 07:11] LABS: Anion Gap 17 mmol/L (10-20); BUN (Urea Nitrogen) 19 mg/dL (9.8-20.1); Calc. Creatinine Clearance 75 mL/min (70-130); Calcium 8.7 mg/dL (7.8-10.44); Carbon Dioxide 28 mmol/L (23-31); Chloride 101 mmol/L (98-107); Estimated GFR 96; Glucose 94 mg/dL (80-115); Magnesium 2.1 mg/dL (1.6-2.6); Potassium 4.8 mmol/L (3.5-5.1); Sodium 141 mmol/L (136-145)
[2023-02-15] MEDS: Polyethylene Glycol 3350 17 GM Packet PO SCH (08:11)
[2023-02-15] MEDS: Ferrous Sulfate 325 MG TAB PO SCH (08:11)
[2023-02-15] MEDS: Multivitamin w/Zinc Stress 1 TAB PO SCH (08:11)
[2023-02-15] MEDS: Multivitamin W/ Minerals 1 TAB PO SCH (08:11)
[2023-02-15] MEDS: Vitamin E 400 UNITS CAP PO SCH (08:11)
[2023-02-15] MEDS: Baclofen 10 MG TAB PO PRN ×2 (14:21→20:12)
[2023-02-15] MEDS: DAPTOmycin 500 MG in Sodium Chloride 0.9% 50 ML IVPB SCH (18:18)
[2023-02-15] MEDS: Ondansetron ODT 4 MG TAB PO PRN (18:22)
[2023-02-15] MEDS: Atorvastatin Calcium 40 MG TAB PO SCH (20:09)
[2023-02-16] MEDS: Acetaminophen 500 MG TAB PO PRN ×3 (06:03→20:40)
[2023-02-16] MEDS: Meropenem 1 GM in Sodium Chloride 0.9% 100 ML IVPB SCH ×3 (06:04→20:51)
[2023-02-16 06:41] LABS: #Eosinphils 0.3 thou/uL (0.0-0.7); #Monocytes 0.4 thou/uL (0.11-0.59); %Basophils 0.5 % (0.0-1.0); %Eosinophils 4.9 % (0.0-10.0); %Lymphocytes 37.4 % (21.0-51.0); %Monocytes 6.9 % (0.0-10.0); %Neutrophils 49.6 % (42.0-75.0); Hematocrit 34.4 % (36.0-47.0); Hemoglobin 10.5 g/dL (12.0-16.0); Mean Corpuscular HGB CONC 30.5 g/dL (32.0-36.0); Mean Corpuscular Hemoglobin 26.4 pg (27.0-31.0); Mean Corpuscular Volume 86.6 fl (78.0-98.0); Mean Platelet Volume 8.9 fL (7.4-10.4); Platelet Count 253 10x3/uL (130-400); RBC Distribution Width 13.9 % (11.5-14.5); Red Blood Cell (RBC) Count 3.97 mill/uL (4.20-5.40)
[2023-02-16 07:25] LABS: Anion Gap 13 mmol/L (10-20); BUN (Urea Nitrogen) 17 mg/dL (9.8-20.1); CRP (Inflammatory) 0.76 mg/dL (= or < 0.5); Calc. Creatinine Clearance 79 mL/min (70-130); Calcium 9.1 mg/dL (7.8-10.44); Carbon Dioxide 29 mmol/L (23-31); Chloride 100 mmol/L (98-107); Estimated GFR 97; Glucose 99 mg/dL (80-115); Potassium 4.3 mmol/L (3.5-5.1); Sodium 138 mmol/L (136-145)
[2023-02-16] MEDS: Vitamin E 400 UNITS CAP PO SCH (11:17)
[2023-02-16] MEDS: Baclofen 10 MG TAB PO PRN ×2 (11:17→20:40)
[2023-02-16] MEDS: Multivitamin W/ Minerals 1 TAB PO SCH (11:17)
[2023-02-16] MEDS: Multivitamin w/Zinc Stress 1 TAB PO SCH (11:17)
[2023-02-16] MEDS: Ferrous Sulfate 325 MG TAB PO SCH (11:37)
[2023-02-16] MEDS: Polyethylene Glycol 3350 17 GM Packet PO SCH (11:37)
[2023-02-16] MEDS: DAPTOmycin 500 MG in Sodium Chloride 0.9% 50 ML IVPB SCH (19:17)
[2023-02-16] MEDS: Atorvastatin Calcium 40 MG TAB PO SCH (20:34)
[2023-02-16] MEDS: Ondansetron PF 4 MG/2 ML Vial IVP PRN (20:40)
[2023-02-17] MEDS: Acetaminophen 500 MG TAB PO PRN ×2 (02:50→20:23)
[2023-02-17] MEDS: Baclofen 10 MG TAB PO PRN ×2 (02:50→20:23)
[2023-02-17] MEDS: Meropenem 1 GM in Sodium Chloride 0.9% 100 ML IVPB SCH ×3 (04:57→20:22)
[2023-02-17] MEDS: Ondansetron PF 4 MG/2 ML Vial IVP PRN (04:58)
[2023-02-17 06:49] LABS: #Eosinphils 0.3 thou/uL (0.0-0.7); #Monocytes 0.3 thou/uL (0.11-0.59); #Neutrophils 3.9 thou/uL (1.40-6.50); %Basophils 0.5 % (0.0-1.0); %Eosinophils 4.2 % (0.0-10.0); %Lymphocytes 29.9 % (21.0-51.0); %Monocytes 5.1 % (0.0-10.0); Hematocrit 36.1 % (36.0-47.0); Hemoglobin 10.9 g/dL (12.0-16.0); Mean Corpuscular HGB CONC 30.2 g/dL (32.0-36.0); Mean Corpuscular Hemoglobin 26.3 pg (27.0-31.0); Mean Corpuscular Volume 87.2 fl (78.0-98.0); Mean Platelet Volume 8.8 fL (7.4-10.4); Platelet Count 269 10x3/uL (130-400); RBC Distribution Width 14.2 % (11.5-14.5); Red Blood Cell (RBC) Count 4.14 mill/uL (4.20-5.40); White Blood Cell (WBC) Count 6.5 10x3/uL (4.8-10.8)
[2023-02-17 07:13] LABS: Anion Gap 13 mmol/L (10-20); BUN (Urea Nitrogen) 23 mg/dL (9.8-20.1); Calc. Creatinine Clearance 78 mL/min (70-130); Calcium 8.7 mg/dL (7.8-10.44); Carbon Dioxide 28 mmol/L (23-31); Chloride 101 mmol/L (98-107); Estimated GFR 97; Glucose 100 mg/dL (80-115); Potassium 4.5 mmol/L (3.5-5.1); Sodium 137 mmol/L (136-145)
[2023-02-17] MEDS: Vitamin E 400 UNITS CAP PO SCH (09:36)
[2023-02-17] MEDS: Multivitamin W/ Minerals 1 TAB PO SCH (09:36)
[2023-02-17] MEDS: Multivitamin w/Zinc Stress 1 TAB PO SCH (09:36)
[2023-02-17] MEDS: Polyethylene Glycol 3350 17 GM Packet PO SCH (09:46)
[2023-02-17] MEDS: Ferrous Sulfate 325 MG TAB PO SCH (09:46)
[2023-02-17] MEDS: Promethazine HCl 25 MG in Sodium Chloride 0.9% 50 ML IVPB PRN ×2 (13:18→20:22)
[2023-02-17] MEDS: DAPTOmycin 500 MG in Sodium Chloride 0.9% 50 ML IVPB SCH (17:21)
[2023-02-17] MEDS: Atorvastatin Calcium 40 MG TAB PO SCH (20:23)
[2023-02-18] MEDS: Promethazine HCl 25 MG in Sodium Chloride 0.9% 50 ML IVPB PRN ×3 (04:53→21:17)
[2023-02-18] MEDS: Meropenem 1 GM in Sodium Chloride 0.9% 100 ML IVPB SCH ×3 (04:53→21:17)
[2023-02-18] MEDS: Acetaminophen 500 MG TAB PO PRN ×3 (04:54→21:48)
[2023-02-18] MEDS: Baclofen 10 MG TAB PO PRN ×2 (04:54→21:19)
[2023-02-18] MEDS: Polyethylene Glycol 3350 17 GM Packet PO SCH (08:30)
[2023-02-18] MEDS: Multivitamin w/Zinc Stress 1 TAB PO SCH (08:30)
[2023-02-18] MEDS: Ferrous Sulfate 325 MG TAB PO SCH (08:30)
[2023-02-18] MEDS: Vitamin E 400 UNITS CAP PO SCH (08:31)
[2023-02-18] MEDS: Multivitamin W/ Minerals 1 TAB PO SCH (08:31)
[2023-02-18 11:07] LABS: #Eosinphils 0.3 thou/uL (0.0-0.7); #Monocytes 0.4 thou/uL (0.11-0.59); #Neutrophils 2.5 thou/uL (1.40-6.50); %Basophils 0.4 % (0.0-1.0); %Eosinophils 5.9 % (0.0-10.0); %Lymphocytes 38.3 % (21.0-51.0); %Monocytes 7.3 % (0.0-10.0); %Neutrophils 47.5 % (42.0-75.0); Hematocrit 34.7 % (36.0-47.0); Hemoglobin 10.4 g/dL (12.0-16.0); Mean Corpuscular Hemoglobin 26.4 pg (27.0-31.0); Mean Corpuscular Volume 88.1 fl (78.0-98.0); Mean Platelet Volume 8.9 fL (7.4-10.4); Platelet Count 221 10x3/uL (130-400); RBC Distribution Width 14.5 % (11.5-14.5); Red Blood Cell (RBC) Count 3.94 mill/uL (4.20-5.40); White Blood Cell (WBC) Count 5.2 10x3/uL (4.8-10.8)
[2023-02-18 11:54] LABS: Anion Gap 12 mmol/L (10-20); BUN (Urea Nitrogen) 24 mg/dL (9.8-20.1); Calc. Creatinine Clearance 89 mL/min (70-130); Calcium 8.6 mg/dL (7.8-10.44); Carbon Dioxide 28 mmol/L (23-31); Chloride 103 mmol/L (98-107); Estimated GFR 100; Glucose 101 mg/dL (80-115); Potassium 4.2 mmol/L (3.5-5.1); Sodium 139 mmol/L (136-145)
[2023-02-18] MEDS: DAPTOmycin 500 MG in Sodium Chloride 0.9% 50 ML IVPB SCH (17:39)
[2023-02-18] MEDS: Atorvastatin Calcium 40 MG TAB PO SCH (21:19)
[2023-02-18] MEDS ORDERED: Sodium Chloride 0.9% 1,000 ML IV SCH (23:45)
[2023-02-19 05:05] LABS: #Eosinphils 0.4 thou/uL (0.0-0.7); #Monocytes 0.4 thou/uL (0.11-0.59); #Neutrophils 5.4 thou/uL (1.40-6.50); %Basophils 0.4 % (0.0-1.0); %Eosinophils 4.3 % (0.0-10.0); %Lymphocytes 23.8 % (21.0-51.0); %Monocytes 4.3 % (0.0-10.0); %Neutrophils 66.7 % (42.0-75.0); Hematocrit 33.6 % (36.0-47.0); Hemoglobin 10.7 g/dL (12.0-16.0); Mean Corpuscular HGB CONC 31.8 g/dL (32.0-36.0); Mean Corpuscular Hemoglobin 27.6 pg (27.0-31.0); Mean Corpuscular Volume 86.6 fl (78.0-98.0); Mean Platelet Volume 9.3 fL (7.4-10.4); Platelet Count 266 10x3/uL (130-400); RBC Distribution Width 14.7 % (11.5-14.5); Red Blood Cell (RBC) Count 3.88 mill/uL (4.20-5.40); White Blood Cell (WBC) Count 8.1 10x3/uL (4.8-10.8)
[2023-02-19] MEDS: Baclofen 10 MG TAB PO PRN ×2 (05:31→20:44)
[2023-02-19] MEDS: Meropenem 1 GM in Sodium Chloride 0.9% 100 ML IVPB SCH ×3 (05:31→20:42)
[2023-02-19] MEDS: Promethazine HCl 25 MG in Sodium Chloride 0.9% 50 ML IVPB PRN ×2 (05:31→14:15)
[2023-02-19] MEDS: Acetaminophen 500 MG TAB PO PRN ×2 (05:31→20:45)
[2023-02-19 05:32] LABS: Anion Gap 17 mmol/L (10-20); BUN (Urea Nitrogen) 30 mg/dL (9.8-20.1); Calc. Creatinine Clearance 87 mL/min (70-130); Calcium 8.3 mg/dL (7.8-10.44); Carbon Dioxide 22 mmol/L (23-31); Chloride 103 mmol/L (98-107); Estimated GFR 99; Glucose 131 mg/dL (80-115); Potassium 4.2 mmol/L (3.5-5.1); Sodium 138 mmol/L (136-145)
[2023-02-19] MEDS: Multivitamin w/Zinc Stress 1 TAB PO SCH (08:35)
[2023-02-19] MEDS: Vitamin E 400 UNITS CAP PO SCH (08:35)
[2023-02-19] MEDS: Polyethylene Glycol 3350 17 GM Packet PO SCH (08:35)
[2023-02-19] MEDS: Ferrous Sulfate 325 MG TAB PO SCH (08:35)
[2023-02-19] MEDS: Multivitamin W/ Minerals 1 TAB PO SCH (08:35)
[2023-02-19] MEDS ORDERED: Dexamethasone 4 mg/ml Vial ONE (09:37)
[2023-02-19] MEDS ORDERED: Fentanyl 250 MCG/5 ML VIAL ONE (09:37)
[2023-02-19] MEDS ORDERED: PROPOFOL 20 ML ONE (09:37)
[2023-02-19] MEDS ORDERED: Rocuronium Bromide 10 MG/ML (10ML VIAL) ONE ×2 (09:37→10:00)
[2023-02-19] MEDS ORDERED: Lidocaine 2% PF 5 ML VIAL ONE (09:37)
[2023-02-19] MEDS ORDERED: SUGAMMADEX SODIUM 200 MG/2 ML VIAL ONE (09:50)
[2023-02-19] MEDS ORDERED: Glycopyrrolate 0.2 MG/ML 5 ML SYRINGE ONE ×2 (10:00→11:02)
[2023-02-19] MEDS ORDERED: ePHEDrine Sulfate 50 MG/10 ML VIAL ONE ×2 (10:00→10:25)
[2023-02-19] MEDS ORDERED: NEOSTIGMINE 3 MG/3 ML SYR 3 MG/3 ML SYRINGE ONE ×2 (10:00→11:02)
[2023-02-19] MEDS ORDERED: Lidocaine 1% PF 5 ML VIAL ONE (10:00)
[2023-02-19] MEDS ORDERED: Ondansetron HCl/PF 4 MG/2 ML Vial IVP PRN (10:27)
[2023-02-19] MEDS ORDERED: Promethazine HCl 25 MG/ML VIAL IM PRN (10:27)
[2023-02-19] MEDS ORDERED: HYDROmorphone 2 MG/ML VIAL SLOW IVP PRN (10:27)
[2023-02-19] MEDS: Morphine 2 MG/ML VIAL SLOW IVP PRN (17:24)
[2023-02-19] MEDS: DAPTOmycin 500 MG in Sodium Chloride 0.9% 50 ML IVPB SCH (18:59)
[2023-02-19] MEDS: Atorvastatin Calcium 40 MG TAB PO SCH (20:45)
[2023-02-20] MEDS: Morphine 2 MG/ML VIAL SLOW IVP PRN ×4 (00:35→13:17)
[2023-02-20] MEDS: Meropenem 1 GM in Sodium Chloride 0.9% 100 ML IVPB SCH ×4 (05:24→17:42)
[2023-02-20] MEDS: Promethazine HCl 25 MG in Sodium Chloride 0.9% 50 ML IVPB PRN ×2 (05:24→17:00)
[2023-02-20] MEDS: Acetaminophen 500 MG TAB PO PRN ×2 (05:24→20:24)
[2023-02-20] MEDS: Baclofen 10 MG TAB PO PRN ×2 (05:24→20:30)
[2023-02-20] MEDS: Multivitamin W/ Minerals 1 TAB PO SCH (16:28)
[2023-02-20] MEDS: Multivitamin w/Zinc Stress 1 TAB PO SCH (16:28)
[2023-02-20] MEDS: Ferrous Sulfate 325 MG TAB PO SCH (16:28)
[2023-02-20] MEDS: Polyethylene Glycol 3350 17 GM Packet PO SCH ×2 (16:29→17:00)
[2023-02-20] MEDS: Vitamin E 400 UNITS CAP PO SCH (16:34)
[2023-02-20] MEDS: DAPTOmycin 500 MG in Sodium Chloride 0.9% 50 ML IVPB SCH (20:20)
[2023-02-20] MEDS: Atorvastatin Calcium 40 MG TAB PO SCH (20:24)
[2023-02-21] MEDS: Baclofen 10 MG TAB PO PRN ×3 (00:21→21:29)
[2023-02-21] MEDS: Morphine 2 MG/ML VIAL SLOW IVP PRN ×4 (00:26→21:30)
[2023-02-21] MEDS: Promethazine HCl 25 MG in Sodium Chloride 0.9% 50 ML IVPB PRN ×3 (01:28→16:17)
[2023-02-21] MEDS: Meropenem 1 GM in Sodium Chloride 0.9% 100 ML IVPB SCH ×3 (01:32→17:50)
[2023-02-21] MEDS: Vitamin E 400 UNITS CAP PO SCH (10:28)
[2023-02-21] MEDS: Multivitamin W/ Minerals 1 TAB PO SCH (10:29)
[2023-02-21] MEDS: Multivitamin w/Zinc Stress 1 TAB PO SCH (10:29)
[2023-02-21] MEDS: Naloxegol 12.5 MG TAB PO SCH (10:29)
[2023-02-21] MEDS: Ferrous Sulfate 325 MG TAB PO SCH (10:40)
[2023-02-21] MEDS: Polyethylene Glycol 3350 17 GM Packet PO SCH (10:40)
[2023-02-21] MEDS: DAPTOmycin 500 MG in Sodium Chloride 0.9% 50 ML IVPB SCH (16:57)
[2023-02-21] MEDS: Acetaminophen 500 MG TAB PO PRN (17:58)
[2023-02-21] MEDS: Atorvastatin Calcium 40 MG TAB PO SCH (21:24)
[2023-02-22] MEDS: Morphine 2 MG/ML VIAL SLOW IVP PRN ×3 (02:23→18:12)
[2023-02-22] MEDS: Meropenem 1 GM in Sodium Chloride 0.9% 100 ML IVPB SCH ×2 (02:23→09:12)
[2023-02-22] MEDS: Promethazine HCl 25 MG in Sodium Chloride 0.9% 50 ML IVPB PRN ×3 (03:10→14:57)
[2023-02-22] MEDS: Vitamin E 400 UNITS CAP PO SCH (08:43)
[2023-02-22] MEDS: Multivitamin w/Zinc Stress 1 TAB PO SCH (08:43)
[2023-02-22] MEDS: Multivitamin W/ Minerals 1 TAB PO SCH (08:43)
[2023-02-22] MEDS: Baclofen 10 MG TAB PO PRN ×2 (08:50→18:12)
[2023-02-22] MEDS: Naloxegol 12.5 MG TAB PO SCH (08:51)
[2023-02-22] MEDS: Ferrous Sulfate 325 MG TAB PO SCH (08:52)
[2023-02-22] MEDS: Polyethylene Glycol 3350 17 GM Packet PO SCH (08:52)
[2023-02-22] MEDS ORDERED: Aspirin 81 mg Enteric Coated Tablet PO SCH (09:00)
[2023-02-22] MEDS ORDERED: Methylnaltrexone 12 MG/0.6 ML VIAL SC SCH (09:15)
[2023-02-22] MEDS ORDERED: Ertapenem 1 GM in Sodium Chloride 0.9% 100 ML IVPB SCH (14:00)
[2023-02-22] MEDS: DAPTOmycin 500 MG in Sodium Chloride 0.9% 50 ML IVPB SCH (15:59)
[2023-02-22 17:16] VITALS: TEMP 98.4
[2023-02-22 19:26] VITALS: BP 135/85
== END 2023-02-22 20:05 | DRG 853 ==
LOC: ERS 19:18 → T4-A 23:08
PROVIDERS: ADMIT Student in an Organized Health Care Education/Training Program; ATTEND Internal Medicine
PROC: 0T9B70Z Drainage of Bladder with Drainage Device, Via Natural or Artificial Opening (ICD-10-PCS; 2023-02-09)
PROC: 4A043R1 Measurement of Venous Saturation, Peripheral, Percutaneous Approach (ICD-10-PCS; 2023-02-09)
PROC: 0JD70ZZ Extraction of Back Subcutaneous Tissue and Fascia, Open Approach (ICD-10-PCS; 2023-02-13)
PROC: 3E033XZ Introduction of Vasopressor into Peripheral Vein, Percutaneous Approach (ICD-10-PCS; 2023-02-13)
PROC: 0D1L0Z4 Bypass Transverse Colon to Cutaneous, Open Approach (ICD-10-PCS; principal; 2023-02-19)
PROC: 0WJP0ZZ Inspection of Gastrointestinal Tract, Open Approach (ICD-10-PCS; 2023-02-20)
PROC: 02HV33Z Insertion of Infusion Device into Superior Vena Cava, Percutaneous Approach (ICD-10-PCS; 2023-02-22)
DX: A41.9 Sepsis, unspecified organism (principal); G82.50 Quadriplegia, unspecified; L89.154 Pressure ulcer of sacral region, stage 4; M86.9 Osteomyelitis, unspecified; N39.0 Urinary tract infection, site not specified; D64.9 Anemia, unspecified; K52.89 Other specified noninfective gastroenteritis and colitis; Z88.1 Allergy status to other antibiotic agents; Z88.5 Allergy status to narcotic agent; Z91.040 Latex allergy status; Z88.0 Allergy status to penicillin; Z79.82 Long term (current) use of aspirin; Z79.899 Other long term (current) drug therapy; E11.9 Type 2 diabetes mellitus without complications; E78.5 Hyperlipidemia, unspecified; Z98.890 Other specified postprocedural states; Z11.52 Encounter for screening for COVID-19
CPT/HCPCS: 36415; 36416; 36569; 71045; 72193; 80048; 80053; 81001; 82805; 83605; 83735; 85025; 86140; 87040; 87086; 90471; 90694; 93005; 96365; 96367; 96375; 97139; C1751; G0008; J0171; J0878; J1100; J1335; J1885; J2001; J2175; J2185; J2212; J2272; J2405; J2550; J2704; J3010; J3490; J7050; J7120; Q0162; Q0169; S0020; S0028

== ENCOUNTER 2023-04-20 10:00 | Inpatient (IN) | payer MEDICARE ==
[2023-04-20 11:41] LABS: #Eosinphils 0.1 thou/uL (0.0-0.7); #Monocytes 0.4 thou/uL (0.11-0.59); #Neutrophils 8.8 thou/uL (1.40-6.50); %Basophils 0.2 % (0.0-1.0); %Eosinophils 0.9 % (0.0-10.0); %Lymphocytes 5.4 % (21.0-51.0); %Monocytes 3.7 % (0.0-10.0); %Neutrophils 89.4 % (42.0-75.0); Hematocrit 28.2 % (36.0-47.0); Hemoglobin 8.6 g/dL (12.0-16.0); Mean Corpuscular HGB CONC 30.5 g/dL (32.0-36.0); Mean Corpuscular Hemoglobin 24.9 pg (27.0-31.0); Mean Corpuscular Volume 81.5 fl (78.0-98.0); Mean Platelet Volume 9.5 fL (7.4-10.4); Platelet Count 285 10x3/uL (130-400); RBC Distribution Width 15.9 % (11.5-14.5); Red Blood Cell (RBC) Count 3.46 mill/uL (4.20-5.40); White Blood Cell (WBC) Count 9.8 10x3/uL (4.8-10.8)
[2023-04-20] MEDS ORDERED: Morphine 4 MG/ML VIAL ONE ×2 (11:54→13:27)
[2023-04-20] MEDS ORDERED: Ondansetron PF 4 MG/2 ML Vial ONE ×2 (11:54→13:27)
[2023-04-20 12:01] LABS: Bilirubin Negative (Negative); Blood, Urine 1+ (Negative); CAUTI Indications for Culture Pelvic or flank pain; Clarity Turbid (Clear); Glucose, Urine (Dipstick) Normal (Negative); Ketone, Urine Negative (Negative); Leukocyte 500 Leu/uL (Negative); Nitrite Negative (Negative); Protein, Urine (Dipstick) 30 mg/dL (Neg-Trace); Specific Gravity, Urine 1.022 (1.002-1.036); Squamous Epithelial 0-3 HPF (0-3); Urobilinogen Normal mg/dL (Less than 2); WBC/HPF Greater than 50 HPF (0-3); pH, Urine 5.5 (5.0-9.0)
[2023-04-20 12:02] LABS: Bacteria/HPF 1+ HPF (None Seen); Urine Culture Reflex Yes Yes
[2023-04-20 12:04] LABS: ALT (SGPT) 15 U/L (8-55); AST (SGOT) 13 U/L (5-34); Albumin 2.9 g/dL (3.4-4.8); Alkaline Phosphatase 131 U/L (40-110); Anion Gap 16 mmol/L (10-20); BUN (Urea Nitrogen) 26 mg/dL (9.8-20.1); Bilirubin, Total 0.4 mg/dL (0.2-1.2); Calc. Creatinine Clearance 0 mL/min (70-130); Calcium 8.7 mg/dL (7.8-10.44); Carbon Dioxide 24 mmol/L (23-31); Chloride 102 mmol/L (98-107); Estimated GFR 86; Globulin 4.4 g/dL (2.4-3.5); Glucose 136 mg/dL (80-115); Potassium 3.5 mmol/L (3.5-5.1); Protein, Total 7.3 g/dL (5.8-8.1); Sodium 138 mmol/L (136-145)
[2023-04-20 12:24] LABS: SARS-CoV-2 NAA Rapid Test Not Detected (NotDetected)
[2023-04-20] MEDS ORDERED: Guaifenesin DM 100-10/5 ML UDCUP PO PRN (12:48)
[2023-04-20] MEDS ORDERED: Zolpidem Tartrate 5 MG TAB PO PRN (12:48)
[2023-04-20] MEDS ORDERED: Calcium Carbonate 500 MG ChewTAB PO PRN (12:48)
[2023-04-20] MEDS ORDERED: Senokot S 8.6-50 MG TAB PO PRN (12:48)
[2023-04-20] MEDS ORDERED: Meropenem 1 GM in Sodium Chloride 0.9% 100 ML IVPB SCH (13:15)
[2023-04-20 13:19] LABS: Actual Bicarbonate (HCO3v) 23.2 mEq/L (22-28); Base Excess -2.1 mEq/L (-2.0 to +3.0); Chloride (VBG) 103 mmol/L (98-106); Hematocrit-VBG 26 % (36.0-47.0); Hemoglobin (Hb) 8.9 g/dL (11.7-16.1); Potassium (VBG) 3.35 mmol/L (3.70-5.30); Sodium 137 mmol/L (133-146)
[2023-04-20] MEDS ORDERED: Ketorolac Tromethamine 30 MG (1 mL) VIAL ONE (13:27)
[2023-04-20] MEDS ORDERED: Dextrose 5% in Water 1,000 ML IV PRN (14:24)
[2023-04-20] MEDS ORDERED: HumaLOG 300 UNITS/3 ML VIAL SC PRN (14:24)
[2023-04-20] MEDS ORDERED: Glucagon 1 MG/ML KIT IM PRN (14:24)
[2023-04-20] MEDS ORDERED: Dextrose 50% Abboject 50 ML SYRINGE SLOW IVP PRN (14:24)
[2023-04-20 15:26] VITALS: BMI 20.6
[2023-04-20] MEDS: Sodium Chloride 0.9% 1,000 ML IV SCH (17:20)
[2023-04-20] MEDS: Morphine 2 MG/ML VIAL SLOW IVP PRN (18:19)
[2023-04-20] MEDS: Ondansetron PF 4 MG/2 ML Vial IVP PRN (18:26)
[2023-04-20] MEDS: Famotidine 20 MG TAB PO SCH (19:54)
[2023-04-20] MEDS: Acetaminophen 325 MG TAB PO PRN (19:54)
[2023-04-20] MEDS: Meropenem 1 GM in Sodium Chloride 0.9% 100 ML IVPB SCH (21:51)
[2023-04-20] MEDS ORDERED: Ketorolac Tromethamine 30 MG (1 mL) VIAL IVP SCH (22:45)
[2023-04-21] MEDS: Sodium Chloride 0.9% 1,000 ML IV SCH (03:49)
[2023-04-21] MEDS ORDERED: Baclofen 10 MG TAB PO SCH ×5 (04:00→21:00)
[2023-04-21] MEDS: Acetaminophen 325 MG TAB PO PRN ×3 (04:09→15:07)
[2023-04-21] MEDS: Ondansetron PF 4 MG/2 ML Vial IVP PRN ×3 (04:09→21:11)
[2023-04-21] MEDS: Meropenem 1 GM in Sodium Chloride 0.9% 100 ML IVPB SCH ×3 (05:39→21:12)
[2023-04-21] MEDS: Famotidine 20 MG TAB PO SCH ×2 (08:03→21:03)
[2023-04-21] MEDS: Enoxaparin 40 MG (0.4 mL) SYRINGE SC SCH (08:04)
[2023-04-21 08:05] LABS: #Eosinphils 0.2 thou/uL (0.0-0.7); #Monocytes 0.6 thou/uL (0.11-0.59); #Neutrophils 7.1 thou/uL (1.40-6.50); %Basophils 0.2 % (0.0-1.0); %Eosinophils 2.1 % (0.0-10.0); %Lymphocytes 12.4 % (21.0-51.0); %Monocytes 6.9 % (0.0-10.0); Hematocrit 28.5 % (36.0-47.0); Hemoglobin 8.4 g/dL (12.0-16.0); Mean Corpuscular HGB CONC 29.5 g/dL (32.0-36.0); Mean Corpuscular Hemoglobin 24.6 pg (27.0-31.0); Mean Corpuscular Volume 83.3 fl (78.0-98.0); Mean Platelet Volume 9.3 fL (7.4-10.4); Platelet Count 299 10x3/uL (130-400); RBC Distribution Width 16.1 % (11.5-14.5); Red Blood Cell (RBC) Count 3.42 mill/uL (4.20-5.40); White Blood Cell (WBC) Count 9.1 10x3/uL (4.8-10.8)
[2023-04-21 08:33] LABS: ALT (SGPT) 13 U/L (8-55); AST (SGOT) 16 U/L (5-34); Albumin 2.5 g/dL (3.4-4.8); Alkaline Phosphatase 106 U/L (40-110); Anion Gap 16 mmol/L (10-20); BUN (Urea Nitrogen) 21 mg/dL (9.8-20.1); Bilirubin, Total 0.2 mg/dL (0.2-1.2); Calc. Creatinine Clearance 76 mL/min (70-130); Calcium 8.3 mg/dL (7.8-10.44); Carbon Dioxide 23 mmol/L (23-31); Chloride 103 mmol/L (98-107); Estimated GFR 96; Globulin 4.1 g/dL (2.4-3.5); Glucose 108 mg/dL (80-115); Potassium 3.9 mmol/L (3.5-5.1); Protein, Total 6.6 g/dL (5.8-8.1); Sodium 138 mmol/L (136-145)
[2023-04-21] MEDS ORDERED: Enoxaparin 40 MG (0.4 mL) SYRINGE SC SCH (09:00)
[2023-04-21] MEDS: HYDROcodone/Acetaminophen 5/325 mg Tablet PO PRN ×3 (11:07→21:03)
[2023-04-21] MEDS: Baclofen 10 MG TAB PO SCH (21:03)
[2023-04-22] MEDS ORDERED: Baclofen 10 MG TAB PO SCH ×3 (00:30→21:00)
[2023-04-22] MEDS: HYDROcodone/Acetaminophen 5/325 mg Tablet PO PRN ×5 (00:59→21:37)
[2023-04-22] MEDS: Meropenem 1 GM in Sodium Chloride 0.9% 100 ML IVPB SCH ×3 (05:00→21:37)
[2023-04-22] MEDS: Ondansetron PF 4 MG/2 ML Vial IVP PRN ×3 (05:04→21:37)
[2023-04-22] MEDS: Famotidine 20 MG TAB PO SCH ×2 (08:19→21:37)
[2023-04-22] MEDS: Baclofen 10 MG TAB PO SCH (08:19)
[2023-04-22] MEDS: Acetaminophen 325 MG TAB PO PRN ×2 (08:24→14:11)
[2023-04-22] MEDS ORDERED: Polyethylene Glycol 3350 17 GM Packet PO PRN (09:47)
[2023-04-22] MEDS: Enoxaparin 40 MG (0.4 mL) SYRINGE SC SCH (11:04)
[2023-04-22] MEDS: Baclofen 10 MG TAB PO PRN ×2 (14:11→16:47)
[2023-04-22] MEDS ORDERED: Fleet Saline Enema 133 ML BOT FS SCH (19:45)
[2023-04-22] MEDS: Senokot S 8.6-50 MG TAB PO SCH (21:38)
[2023-04-22] MEDS: Ascorbic Acid 500 mg Chewable Tablet PO SCH (21:38)
[2023-04-23] MEDS: Baclofen 10 MG TAB PO PRN ×5 (01:19→16:31)
[2023-04-23] MEDS: HYDROcodone/Acetaminophen 5/325 mg Tablet PO PRN ×5 (01:19→21:02)
[2023-04-23] MEDS: Ondansetron PF 4 MG/2 ML Vial IVP PRN ×3 (04:54→21:15)
[2023-04-23] MEDS: Meropenem 1 GM in Sodium Chloride 0.9% 100 ML IVPB SCH ×3 (04:55→21:08)
[2023-04-23] MEDS ORDERED: LACTASE 9000 UNIT PO PRN (07:30)
[2023-04-23] MEDS: Multivitamin w/Zinc Stress 1 TAB PO SCH (09:25)
[2023-04-23] MEDS: Ferrous Sulfate 325 MG TAB PO SCH (09:25)
[2023-04-23] MEDS: Vitamin A 10,000 UNITS CAP PO SCH (09:25)
[2023-04-23] MEDS: Senokot S 8.6-50 MG TAB PO SCH ×2 (09:25→21:07)
[2023-04-23] MEDS: Famotidine 20 MG TAB PO SCH ×2 (09:25→21:02)
[2023-04-23] MEDS: Multivitamin W/ Minerals 1 TAB PO SCH (09:25)
[2023-04-23] MEDS: Aspirin Chewable 81 MG TAB PO SCH (09:26)
[2023-04-23] MEDS: Ascorbic Acid 500 mg Chewable Tablet PO SCH ×2 (09:26→21:03)
[2023-04-23] MEDS: Enoxaparin 40 MG (0.4 mL) SYRINGE SC SCH (11:58)
[2023-04-23] MEDS ORDERED: Metoclopramide HCl 10 MG (2 mL) VIAL IVP PRN (14:08)
[2023-04-23] MEDS ORDERED: Mineral Oil ENEMA PR SCH (14:15)
[2023-04-23] MEDS ORDERED: Baclofen 10 MG TAB PO SCH (20:00)
[2023-04-23] MEDS: Atorvastatin Calcium 10 MG TAB PO SCH (21:02)
[2023-04-23] MEDS: Promethazine 25 MG TAB PO PRN (21:55)
[2023-04-24] MEDS: Baclofen 10 MG TAB PO PRN ×4 (04:41→22:01)
[2023-04-24] MEDS: Promethazine 25 MG TAB PO PRN ×3 (04:41→20:38)
[2023-04-24] MEDS: HYDROcodone/Acetaminophen 5/325 mg Tablet PO PRN ×4 (04:41→22:01)
[2023-04-24] MEDS: Meropenem 1 GM in Sodium Chloride 0.9% 100 ML IVPB SCH ×3 (05:31→21:43)
[2023-04-24] MEDS: Multivitamin W/ Minerals 1 TAB PO SCH (08:50)
[2023-04-24] MEDS: Ascorbic Acid 500 mg Chewable Tablet PO SCH ×2 (08:51→20:37)
[2023-04-24] MEDS: Multivitamin w/Zinc Stress 1 TAB PO SCH (08:52)
[2023-04-24] MEDS: Aspirin Chewable 81 MG TAB PO SCH (08:52)
[2023-04-24] MEDS: Famotidine 20 MG TAB PO SCH ×2 (08:52→20:38)
[2023-04-24] MEDS: Vitamin A 10,000 UNITS CAP PO SCH (08:52)
[2023-04-24] MEDS: Ferrous Sulfate 325 MG TAB PO SCH (08:52)
[2023-04-24] MEDS ORDERED: Doxycycline 100 MG CAP PO SCH (09:00)
[2023-04-24] MEDS: Senokot S 8.6-50 MG TAB PO SCH ×2 (09:04→20:40)
[2023-04-24] MEDS: Enoxaparin 40 MG (0.4 mL) SYRINGE SC SCH (09:04)
[2023-04-24] MEDS: DAPTOmycin 500 MG in Sodium Chloride 0.9% 50 ML IVPB SCH (12:09)
[2023-04-24] MEDS: Morphine 2 MG/ML VIAL SLOW IVP PRN (12:29)
[2023-04-24] MEDS: Atorvastatin Calcium 10 MG TAB PO SCH (20:38)
[2023-04-25] MEDS: Baclofen 10 MG TAB PO PRN ×4 (03:37→20:17)
[2023-04-25 04:56] LABS: #Eosinphils 0.2 thou/uL (0.0-0.7); #Monocytes 0.3 thou/uL (0.11-0.59); #Neutrophils 2.3 thou/uL (1.40-6.50); %Eosinophils 3.9 % (0.0-10.0); %Lymphocytes 37.7 % (21.0-51.0); %Monocytes 6.9 % (0.0-10.0); %Neutrophils 49.8 % (42.0-75.0); Hematocrit 28.1 % (36.0-47.0); Hemoglobin 8.4 g/dL (12.0-16.0); Mean Corpuscular HGB CONC 29.9 g/dL (32.0-36.0); Mean Corpuscular Hemoglobin 24.9 pg (27.0-31.0); Mean Corpuscular Volume 83.1 fl (78.0-98.0); Mean Platelet Volume 10.3 fL (7.4-10.4); Platelet Count 261 10x3/uL (130-400); RBC Distribution Width 15.8 % (11.5-14.5); Red Blood Cell (RBC) Count 3.38 mill/uL (4.20-5.40); White Blood Cell (WBC) Count 4.7 10x3/uL (4.8-10.8)
[2023-04-25] MEDS: Meropenem 1 GM in Sodium Chloride 0.9% 100 ML IVPB SCH (05:13)
[2023-04-25 05:21] LABS: Anion Gap 8 mmol/L (10-20); BUN (Urea Nitrogen) 10 mg/dL (9.8-20.1); Calc. Creatinine Clearance 92 mL/min (70-130); Calcium 8.4 mg/dL (7.8-10.44); Carbon Dioxide 33 mmol/L (23-31); Chloride 99 mmol/L (98-107); Estimated GFR 101; Glucose 106 mg/dL (80-115); Potassium 4.3 mmol/L (3.5-5.1); Sodium 136 mmol/L (136-145)
[2023-04-25] MEDS: Enoxaparin 40 MG (0.4 mL) SYRINGE SC SCH (08:48)
[2023-04-25] MEDS: Senokot S 8.6-50 MG TAB PO SCH ×2 (08:51→20:13)
[2023-04-25] MEDS: Vitamin A 10,000 UNITS CAP PO SCH (08:52)
[2023-04-25] MEDS: Multivitamin w/Zinc Stress 1 TAB PO SCH (08:52)
[2023-04-25] MEDS: Ascorbic Acid 500 mg Chewable Tablet PO SCH ×2 (08:53→20:12)
[2023-04-25] MEDS: Ferrous Sulfate 325 MG TAB PO SCH (08:53)
[2023-04-25] MEDS: Multivitamin W/ Minerals 1 TAB PO SCH (08:53)
[2023-04-25] MEDS: Aspirin Chewable 81 MG TAB PO SCH (08:53)
[2023-04-25] MEDS: Famotidine 20 MG TAB PO SCH ×2 (08:53→20:12)
[2023-04-25] MEDS: Acetaminophen 325 MG TAB PO PRN ×2 (10:45→20:17)
[2023-04-25] MEDS: DAPTOmycin 500 MG in Sodium Chloride 0.9% 50 ML IVPB SCH (12:25)
[2023-04-25] MEDS: Atorvastatin Calcium 10 MG TAB PO SCH (20:13)
[2023-04-26] MEDS: Baclofen 10 MG TAB PO PRN (02:45)
[2023-04-26] MEDS: Acetaminophen 325 MG TAB PO PRN ×2 (02:45→08:26)
[2023-04-26] MEDS: Morphine 2 MG/ML VIAL SLOW IVP PRN (08:33)
[2023-04-26] MEDS: Enoxaparin 40 MG (0.4 mL) SYRINGE SC SCH (09:21)
[2023-04-26] MEDS: Multivitamin w/Zinc Stress 1 TAB PO SCH (09:23)
[2023-04-26] MEDS: Ascorbic Acid 500 mg Chewable Tablet PO SCH (09:23)
[2023-04-26] MEDS: Senokot S 8.6-50 MG TAB PO SCH (09:23)
[2023-04-26] MEDS: Aspirin Chewable 81 MG TAB PO SCH (09:23)
[2023-04-26] MEDS: Multivitamin W/ Minerals 1 TAB PO SCH (09:24)
[2023-04-26] MEDS: Famotidine 20 MG TAB PO SCH (09:24)
[2023-04-26] MEDS: Vitamin A 10,000 UNITS CAP PO SCH (09:24)
[2023-04-26] MEDS: Ferrous Sulfate 325 MG TAB PO SCH (09:25)
[2023-04-26] MEDS ORDERED: Morphine 2 MG/ML VIAL SLOW IVP SCH (11:15)
[2023-04-26] MEDS: DAPTOmycin 500 MG in Sodium Chloride 0.9% 50 ML IVPB SCH (11:36)
[2023-04-26] MEDS: HYDROcodone/Acetaminophen 5/325 mg Tablet PO PRN (11:59)
[2023-04-26 12:30] VITALS: BP 169/87; TEMP 98
== END 2023-04-26 16:45 | disposition home or self-care (01) | DRG 698 ==
LOC: ERS 10:00 → T4-B 12:47
PROVIDERS: ADMIT Internal Medicine; ATTEND Hospitalist
DX: T83.511A Infection and inflammatory reaction due to indwelling urethral catheter, initial encounter (principal); A41.9 Sepsis, unspecified organism; L89.154 Pressure ulcer of sacral region, stage 4; L89.324 Pressure ulcer of left buttock, stage 4; G82.20 Paraplegia, unspecified; M86.68 Other chronic osteomyelitis, other site; G37.3 Acute transverse myelitis in demyelinating disease of central nervous system; N39.0 Urinary tract infection, site not specified; K59.00 Constipation, unspecified; N31.9 Neuromuscular dysfunction of bladder, unspecified; E11.69 Type 2 diabetes mellitus with other specified complication; Z88.0 Allergy status to penicillin; Z88.1 Allergy status to other antibiotic agents; Z88.8 Allergy status to other drugs, medicaments and biological substances; Z88.5 Allergy status to narcotic agent; Z91.040 Latex allergy status; Z79.899 Other long term (current) drug therapy; Z79.82 Long term (current) use of aspirin; Z93.3 Colostomy status; Z74.01 Bed confinement status; Z99.3 Dependence on wheelchair; Z86.73 Personal history of transient ischemic attack (TIA), and cerebral infarction without residual deficits; Z98.890 Other specified postprocedural states; Z11.52 Encounter for screening for COVID-19
CPT/HCPCS: 36415; 36416; 74176; 80048; 80053; 81001; 82805; 83605; 85025; 86140; 87040; 87077; 87086; 87186; 93005; 96365; 96375; 96376; 97139; J0878; J1885; J2185; J2270; J2272; J2405; J2765; J3490; J7050; Q0169

== ENCOUNTER 2023-09-10 10:34 | Inpatient (IN) | payer MEDICARE, OTHER ==
[2023-09-10] MEDS ORDERED: Iopamidol-370 76% 500 ML MDV (1 ML CHARGE) ONE (10:47)
[2023-09-10 11:22] LABS: #Basophils Less than 0.03 10x3/uL (0.0-0.2); %Basophils 0.3 % (0.0-1.0); %Eosinophils 4.2 % (0.0-10.0); %Lymphocytes 22.7 % (21.0-51.0); %Monocytes 5.5 % (0.0-10.0); Hematocrit 40.1 % (36.0-47.0); Hemoglobin 12.4 g/dL (12.0-16.0); Mean Corpuscular HGB CONC 30.9 g/dL (32.0-36.0); Mean Corpuscular Volume 87.4 fL (78.0-98.0); Mean Platelet Volume 9.3 fL (7.4-10.4); Platelet Count 194 10x3/uL (130-400); RBC Distribution Width 15.6 % (11.5-14.5); Red Blood Cell (RBC) Count 4.59 mill/uL (4.20-5.40)
[2023-09-10 11:39] LABS: ALT (SGPT) 15 U/L (8-55); AST (SGOT) 12 U/L (5-34); Albumin 3.4 g/dL (3.4-4.8); Alkaline Phosphatase 101 U/L (40-110); Anion Gap 13 mmol/L (10-20); BUN (Urea Nitrogen) 27 mg/dL (9.8-20.1); Bilirubin, Total 0.3 mg/dL (0.2-1.2); Calc. Creatinine Clearance 0 mL/min (70-130); Calcium 9.3 mg/dL (7.8-10.44); Carbon Dioxide 26 mmol/L (23-31); Chloride 104 mmol/L (98-107); Estimated GFR 96; Globulin 4.3 g/dL (2.4-3.5); Glucose 149 mg/dL (80-115); Lipase 24 U/L (8-78); Potassium 4.5 mmol/L (3.5-5.1); Protein, Total 7.7 g/dL (5.8-8.1); Sodium 138 mmol/L (136-145)
[2023-09-10] MEDS ORDERED: Ibuprofen 200 MG TAB ONE ×2 (11:39→12:12)
[2023-09-10 13:03] LABS: Magnesium 1.8 mg/dL (1.6-2.6)
[2023-09-10 13:36] LABS: Influenza A by NAA Not Detected (NotDetected); Influenza B by NAA Not Detected (NotDetected); SARS-CoV-2 NAA Rapid Test Not Detected (NotDetected)
[2023-09-10 14:49] LABS: Bilirubin Negative (Negative); Blood, Urine Small (Negative); Glucose, Urine (Dipstick) Negative (Negative); Ketone, Urine Negative (Negative); Leukocyte Large (Negative); Nitrite Negative (Negative); Protein, Urine (Dipstick) Negative (Neg-Trace); Urobilinogen 0.2 mg/dL (Less than 2); pH, Urine 6.5 (5.0-9.0)
[2023-09-10] MEDS ORDERED: Ondansetron PF 4 MG/2 ML Vial ONE ×2 (14:53→16:58)
[2023-09-10] MEDS ORDERED: Morphine 4 MG/ML VIAL ONE (14:53)
[2023-09-10 14:55] LABS: Clarity Clear (Clear)
[2023-09-10 15:00] LABS: Specific Gravity, Urine 1.009 (1.002-1.036)
[2023-09-10 15:01] LABS: CAUTI Indications for Culture Pelvic or flank pain
[2023-09-10 15:02] LABS: Bacteria/HPF Rare-Few HPF (None Seen); RBC/HPF 0-3 HPF (0-3); Squamous Epithelial None Seen HPF (0-3)
[2023-09-10 15:03] LABS: Urine Culture Reflex Yes Yes
[2023-09-10] MEDS ORDERED: Ondansetron PF 4 MG/2 ML Vial IVP PRN ×2 (17:45→17:52)
[2023-09-10] MEDS ORDERED: Ondansetron ODT 4 MG TAB SL PRN (17:45)
[2023-09-10] MEDS ORDERED: HumaLOG 300 UNITS/3 ML VIAL SC PRN ×2 (17:52)
[2023-09-10] MEDS ORDERED: Glucagon 1 MG/ML KIT IM PRN (17:52)
[2023-09-10] MEDS ORDERED: Dextrose 50% Abboject 50 ML SYRINGE SLOW IVP PRN (17:52)
[2023-09-10] MEDS ORDERED: Dextrose 5% in Water 1,000 ML IV PRN (17:52)
[2023-09-10] MEDS ORDERED: Polyethylene Glycol 3350 17 GM Packet PO PRN (18:06)
[2023-09-10] MEDS ORDERED: Acetaminophen 500 MG TAB ONE (18:27)
[2023-09-10] MEDS: Baclofen 10 MG TAB PO SCH (19:15)
[2023-09-10] MEDS: Meropenem 1 GM in Sodium Chloride 0.9% 100 ML IVPB SCH (19:19)
[2023-09-10] MEDS: Sodium Chloride 0.9% 1,000 ML IV SCH (19:20)
[2023-09-10 19:57] VITALS: BMI 21.1
[2023-09-10] MEDS: Heparin 5,000 UNITS/ML VIAL SC SCH (20:13)
[2023-09-10] MEDS: Promethazine HCl 12.5 MG in Sodium Chloride 0.9% 50 ML IVPB PRN (20:13)
[2023-09-10] MEDS: Baclofen 10 MG TAB PO PRN (22:36)
[2023-09-10] MEDS: Acetaminophen 500 MG TAB PO PRN (22:36)
[2023-09-11] MEDS: Meropenem 1 GM in Sodium Chloride 0.9% 100 ML IVPB SCH (01:30)
[2023-09-11 05:42] LABS: #Basophils Less than 0.03 10x3/uL (0.0-0.2); %Basophils 0.4 % (0.0-1.0); %Lymphocytes 31.5 % (21.0-51.0); %Neutrophils 53.9 % (42.0-75.0); Hematocrit 37.3 % (36.0-47.0); Hemoglobin 11.9 g/dL (12.0-16.0); Mean Corpuscular HGB CONC 31.9 g/dL (32.0-36.0); Mean Corpuscular Hemoglobin 27.4 pg (27.0-31.0); Mean Corpuscular Volume 85.9 fL (78.0-98.0); Mean Platelet Volume 9.5 fL (7.4-10.4); Platelet Count 178 10x3/uL (130-400); RBC Distribution Width 15.6 % (11.5-14.5); Red Blood Cell (RBC) Count 4.34 mill/uL (4.20-5.40)
[2023-09-11 06:03] LABS: Anion Gap 15 mmol/L (10-20); BUN (Urea Nitrogen) 24 mg/dL (9.8-20.1); Calc. Creatinine Clearance 72 mL/min (70-130); Calcium 8.8 mg/dL (7.8-10.44); Carbon Dioxide 25 mmol/L (23-31); Chloride 105 mmol/L (98-107); Estimated GFR 93; Glucose 134 mg/dL (80-115); Potassium 4.8 mmol/L (3.5-5.1); Sodium 140 mmol/L (136-145)
[2023-09-11] MEDS: Ferrous Sulfate 325 MG TAB PO SCH (09:58)
[2023-09-11] MEDS: Aspirin Chewable 81 MG TAB PO SCH (09:59)
[2023-09-11] MEDS: Saccharomyces boulardii 250 MG CAP PO SCH (09:59)
[2023-09-11] MEDS: Atorvastatin Calcium 10 MG TAB PO SCH (10:00)
[2023-09-11] MEDS: Multivitamin w/Zinc Stress 1 TAB PO SCH (10:01)
[2023-09-11] MEDS: AFRIN NASAL MIST 15 ML BOT NS SCH (10:23)
[2023-09-11] MEDS: Oxymetazoline HCl 0.05% (30 ML BOT) NS SCH (12:56)
[2023-09-11] MEDS: Ibuprofen 600 MG TAB PO PRN (16:17)
[2023-09-11 18:34] VITALS: BMI 21.1
[2023-09-11] MEDS: Senokot 8.6 MG TAB PO SCH (21:08)
[2023-09-11] MEDS: HYDROcodone/Acetaminophen 7.5/325 mg Tablet PO SCH (21:08)
[2023-09-12] MEDS: Ferrous Sulfate 325 MG TAB PO SCH (08:48)
[2023-09-12] MEDS: HYDROcodone/Acetaminophen 5/325 mg Tablet PO PRN (08:49)
[2023-09-12] MEDS ORDERED: HYDROcodone/Acetaminophen 5/325 mg Tablet PO PRN (17:12)
[2023-09-13] MEDS: Fosfomycin 3 GM/Packet PO SCH (16:53)
[2023-09-14 04:49] LABS: #Basophils Less than 0.03 10x3/uL (0.0-0.2); %Basophils 0.2 % (0.0-1.0); %Eosinophils 6.3 % (0.0-10.0); %Lymphocytes 32.3 % (21.0-51.0); %Monocytes 8.4 % (0.0-10.0); %Neutrophils 52.6 % (42.0-75.0); Hematocrit 40.4 % (36.0-47.0); Hemoglobin 12.7 g/dL (12.0-16.0); Mean Corpuscular HGB CONC 31.4 g/dL (32.0-36.0); Mean Corpuscular Hemoglobin 26.7 pg (27.0-31.0); Mean Corpuscular Volume 84.9 fL (78.0-98.0); Mean Platelet Volume 9.5 fL (7.4-10.4); Platelet Count 170 10x3/uL (130-400); RBC Distribution Width 15.4 % (11.5-14.5); Red Blood Cell (RBC) Count 4.76 mill/uL (4.20-5.40)
[2023-09-14 05:12] LABS: Anion Gap 13 mmol/L (10-20); BUN (Urea Nitrogen) 25 mg/dL (9.8-20.1); Calc. Creatinine Clearance 80 mL/min (70-130); Calcium 9.2 mg/dL (7.8-10.44); Carbon Dioxide 24 mmol/L (23-31); Chloride 104 mmol/L (98-107); Estimated GFR 97; Glucose 154 mg/dL (80-115); Potassium 4.4 mmol/L (3.5-5.1); Sodium 137 mmol/L (136-145)
[2023-09-14] MEDS: Morphine 4 MG/ML VIAL SLOW IVP SCH (07:00)
[2023-09-14] MEDS: Ondansetron PF 4 MG/2 ML Vial IVP PRN (07:00)
[2023-09-14] MEDS ORDERED: Mag-Al 1200 mg/1200 mg/30 ML UDCUP PO PRN (09:07)
[2023-09-14] MEDS: Loperamide HCl 2 MG CAP PO PRN (09:19)
[2023-09-14 11:35] VITALS: BP 136/80; TEMP 98.5
== END 2023-09-14 14:35 | disposition home or self-care (01) | DRG 698 ==
LOC: ERS 10:34 → MSONC 17:42
PROVIDERS: ADMIT Internal Medicine; ATTEND Hospitalist
DX: T83.511A Infection and inflammatory reaction due to indwelling urethral catheter, initial encounter (principal); L89.314 Pressure ulcer of right buttock, stage 4; L89.324 Pressure ulcer of left buttock, stage 4; G37.3 Acute transverse myelitis in demyelinating disease of central nervous system; N10 Acute pyelonephritis; M46.28 Osteomyelitis of vertebra, sacral and sacrococcygeal region; G82.20 Paraplegia, unspecified; I95.9 Hypotension, unspecified; M54.9 Dorsalgia, unspecified; R51.9 Headache, unspecified; E89.2 Postprocedural hypoparathyroidism; B96.89 Other specified bacterial agents as the cause of diseases classified elsewhere; J02.9 Acute pharyngitis, unspecified; E11.69 Type 2 diabetes mellitus with other specified complication; N31.9 Neuromuscular dysfunction of bladder, unspecified; R09.89 Other specified symptoms and signs involving the circulatory and respiratory systems; Z88.0 Allergy status to penicillin; E78.1 Pure hyperglyceridemia; Z88.5 Allergy status to narcotic agent; Z88.8 Allergy status to other drugs, medicaments and biological substances; Z79.899 Other long term (current) drug therapy; Z79.82 Long term (current) use of aspirin; Z92.89 Personal history of other medical treatment; Z88.1 Allergy status to other antibiotic agents; Z88.9 Allergy status to unspecified drugs, medicaments and biological substances; Z91.040 Latex allergy status; Y84.6 Urinary catheterization as the cause of abnormal reaction of the patient, or of later complication, without mention of misadventure at the time of the procedure; Z74.01 Bed confinement status
CPT/HCPCS: 36415; 36416; 71045; 74177; 80048; 80053; 81001; 83605; 83690; 83735; 85025; 86141; 87040; 87077; 87086; 87149; 87186; 93005; 96374; 96375; 96376; 97139; J1644; J2185; J2270; J2405; J2550; J3490; J7050; Q9967

== ENCOUNTER 2024-02-14 10:24 | Inpatient (IN) | payer MEDICARE ==
[2024-02-14 11:07] LABS: #Basophils 0.03 10x3/uL (0.0-0.2); %Basophils 0.4 % (0.0-1.0); %Eosinophils 3.4 % (0.0-10.0); %Monocytes 5.7 % (0.0-10.0); %Neutrophils 67.1 % (42.0-75.0); Hematocrit 37.3 % (36.0-47.0); Hemoglobin 12.2 g/dL (12.0-16.0); Mean Corpuscular HGB CONC 32.7 g/dL (32.0-36.0); Mean Corpuscular Hemoglobin 28.1 pg (27.0-31.0); Mean Corpuscular Volume 85.9 fL (78.0-98.0); Mean Platelet Volume 8.9 fL (7.4-10.4); Platelet Count 251 10x3/uL (130-400); Red Blood Cell (RBC) Count 4.34 mill/uL (4.20-5.40)
[2024-02-14 11:25] LABS: ALT (SGPT) 13 U/L (8-55); AST (SGOT) 15 U/L (5-34); Albumin 3.3 g/dL (3.4-4.8); Alkaline Phosphatase 104 U/L (40-110); Anion Gap 16 mmol/L (10-20); BUN (Urea Nitrogen) 23 mg/dL (9.8-20.1); Bilirubin, Total 0.3 mg/dL (0.2-1.2); Calc. Creatinine Clearance 0 mL/min (70-130); Carbon Dioxide 24 mmol/L (23-31); Chloride 99 mmol/L (98-107); Estimated GFR 81; Glucose 318 mg/dL (80-115); Potassium 4.6 mmol/L (3.5-5.1); Protein, Total 8.3 g/dL (5.8-8.1); Sodium 134 mmol/L (136-145)
[2024-02-14 14:05] LABS: Lactic Acid 1.82 mmol/L (0.5-2.2)
[2024-02-14] MEDS ORDERED: Dextrose 5% in Water 1,000 ML IV PRN (15:14)
[2024-02-14] MEDS ORDERED: Glucagon 1 MG/ML KIT IM PRN (15:14)
[2024-02-14] MEDS ORDERED: Ondansetron ODT 4 MG TAB PO PRN (15:14)
[2024-02-14] MEDS ORDERED: Dextrose 50% Abboject 50 ML SYRINGE SLOW IVP PRN (15:14)
[2024-02-14 17:28] VITALS: BMI 21.1
[2024-02-14] MEDS: Famotidine 20 MG TAB PO SCH (20:18)
[2024-02-14 22:54] LABS: Bilirubin Negative (Negative); Blood, Urine 2+ (Negative); Clarity Extra Turbid (Clear); Glucose, Urine (Dipstick) Normal (Negative); Ketone, Urine Negative (Negative); Leukocyte 500 Leu/uL (Negative); Nitrite 2+ (Negative); Protein, Urine (Dipstick) 70 mg/dL (Neg-Trace); Urobilinogen Normal mg/dL (Less than 2); WBC/HPF Greater than 50 HPF (0-3); pH, Urine 5.5 (5.0-9.0)
[2024-02-14 23:13] LABS: Bacteria/HPF 3+ HPF (None Seen); Squamous Epithelial 0-3 HPF (0-3)
[2024-02-15] MEDS: Baclofen 10 MG TAB PO PRN (03:18)
[2024-02-15] MEDS: Acetaminophen 325 MG TAB PO PRN (03:18)
[2024-02-15 05:29] LABS: Anion Gap 13 mmol/L (10-20); BUN (Urea Nitrogen) 22 mg/dL (9.8-20.1); Calc. Creatinine Clearance 82 mL/min (70-130); Calcium 8.6 mg/dL (7.8-10.44); Carbon Dioxide 25 mmol/L (23-31); Chloride 103 mmol/L (98-107); Estimated GFR 98; Glucose 246 mg/dL (80-115); Sodium 137 mmol/L (136-145)
[2024-02-15] MEDS: Enoxaparin 40 MG (0.4 mL) SYRINGE SC SCH (09:37)
[2024-02-15] MEDS: Aspirin Chewable 81 MG TAB PO SCH (09:37)
[2024-02-15] MEDS: Insulin Regular, Human 100 UNIT/ML 10 ML VIAL SC PRN (09:44)
[2024-02-15] MEDS ORDERED: Insulin Regular 300 UNITS/3 ML VIAL SC PRN (12:48)
[2024-02-15] MEDS ORDERED: LACTASE 9000 UNIT PO PRN (12:49)
[2024-02-15] MEDS ORDERED: Simethicone Chewable 80 MG TAB PO PRN (12:51)
[2024-02-15] MEDS: Meropenem 1 GM in Sodium Chloride 0.9% 100 ML IVPB SCH ×2 (13:17→21:53)
[2024-02-15] MEDS ORDERED: Meropenem 500 MG in Sodium Chloride 0.9% 100 ML IVPB SCH (14:00)
[2024-02-15] MEDS: Insulin Glargine 30 UNITS/0.3 ML VIAL SC SCH (21:28)
[2024-02-16 04:25] LABS: #Basophils Less than 0.03 10x3/uL (0.0-0.2); %Basophils 0.4 % (0.0-1.0); %Eosinophils 4.3 % (0.0-10.0); %Lymphocytes 34.7 % (21.0-51.0); %Monocytes 6.9 % (0.0-10.0); %Neutrophils 53.1 % (42.0-75.0); Hematocrit 35.9 % (36.0-47.0); Hemoglobin 11.5 g/dL (12.0-16.0); Mean Corpuscular Hemoglobin 27.5 pg (27.0-31.0); Mean Corpuscular Volume 85.9 fL (78.0-98.0); Mean Platelet Volume 8.8 fL (7.4-10.4); Platelet Count 199 10x3/uL (130-400); RBC Distribution Width 16.1 % (11.5-14.5); Red Blood Cell (RBC) Count 4.18 mill/uL (4.20-5.40)
[2024-02-16 04:46] LABS: Anion Gap 16 mmol/L (10-20); BUN (Urea Nitrogen) 21 mg/dL (9.8-20.1); Calc. Creatinine Clearance 73 mL/min (70-130); Calcium 8.7 mg/dL (7.8-10.44); Carbon Dioxide 22 mmol/L (23-31); Chloride 102 mmol/L (98-107); Estimated GFR 95; Glucose 221 mg/dL (80-115); Potassium 4.2 mmol/L (3.5-5.1); Sodium 136 mmol/L (136-145)
[2024-02-16 04:49] LABS: Hemoglobin A1c 8.1 % (4.0-6.0)
[2024-02-16] MEDS: Insulin Regular, Human 100 UNIT/ML 10 ML VIAL SC PRN ×2 (05:53→21:57)
[2024-02-16] MEDS: Multivitamin W/ Minerals 1 TAB PO SCH (09:28)
[2024-02-16] MEDS: Insulin Glargine 30 UNITS/0.3 ML VIAL SC SCH (09:29)
[2024-02-16] MEDS ORDERED: Insulin Glargine 30 UNITS/0.3 ML VIAL SC SCH (21:00)
[2024-02-17] MEDS: Insulin Glargine 30 UNITS/0.3 ML VIAL SC SCH (14:47)
[2024-02-17 21:40] VITALS: BMI 21.1
[2024-02-18] MEDS: Insulin Glargine 30 UNITS/0.3 ML VIAL SC SCH (09:17)
[2024-02-18] MEDS ORDERED: Insulin Lispro 100 UNIT/ML 10 ML VIAL SC PRN (16:32)
[2024-02-18] MEDS: Enoxaparin 40 MG (0.4 mL) SYRINGE SC SCH (21:14)
[2024-02-19] MEDS: Insulin Glargine 30 UNITS/0.3 ML VIAL SC SCH (09:04)
[2024-02-20 08:12] VITALS: BP 147/81; TEMP 98
== END 2024-02-20 10:37 | disposition home or self-care (01) | DRG 698 ==
LOC: ERS 10:24 → SURG A 14:18 → OBSVTOIN 02-15 12:39
PROVIDERS: ADMIT Hospitalist; ATTEND Internal Medicine
DX: T83.511A Infection and inflammatory reaction due to indwelling urethral catheter, initial encounter (principal); L89.154 Pressure ulcer of sacral region, stage 4; E87.1 Hypo-osmolality and hyponatremia; E87.20 Acidosis, unspecified; G82.20 Paraplegia, unspecified; N39.0 Urinary tract infection, site not specified; L89.159 Pressure ulcer of sacral region, unspecified stage; D53.9 Nutritional anemia, unspecified; E78.5 Hyperlipidemia, unspecified; N31.9 Neuromuscular dysfunction of bladder, unspecified; E11.65 Type 2 diabetes mellitus with hyperglycemia; Z98.890 Other specified postprocedural states; Z79.899 Other long term (current) drug therapy; Z74.01 Bed confinement status; Z88.5 Allergy status to narcotic agent; Z88.0 Allergy status to penicillin; Z88.1 Allergy status to other antibiotic agents; Z88.8 Allergy status to other drugs, medicaments and biological substances; Z91.040 Latex allergy status; Z91.018 Allergy to other foods
CPT/HCPCS: 36415; 36416; 72148; 80048; 80053; 81003; 81015; 83036; 83605; 85025; 86141; 87040; 87070; 87077; 87086; 87186; 87205; 96372; 97139; 99283; G0378; J1650; J1815; J2185

== ENCOUNTER 2024-02-23 12:03 | Emergency (ER) | payer MEDICARE | END 2024-02-23 13:19 | disposition home or self-care (01) | LOC: ERS 12:03 | DX: T82.9XXA Unspecified complication of cardiac and vascular prosthetic device, implant and graft, initial encounter (principal); E11.9 Type 2 diabetes mellitus without complications; I10 Essential (primary) hypertension; Z86.73 Personal history of transient ischemic attack (TIA), and cerebral infarction without residual deficits | CPT/HCPCS: 99282 ==

== ENCOUNTER 2024-02-26 14:07 | Day surgery (SDC) | payer MEDICARE ==
[2024-02-26 15:02] LABS: #Basophils 0.03 10x3/uL (0.0-0.2); %Basophils 0.5 % (0.0-1.0); %Eosinophils 6.1 % (0.0-10.0); %Lymphocytes 28.5 % (21.0-51.0); %Monocytes 7.1 % (0.0-10.0); %Neutrophils 57.6 % (42.0-75.0); Hematocrit 36.7 % (36.0-47.0); Hemoglobin 11.7 g/dL (12.0-16.0); Mean Corpuscular HGB CONC 31.9 g/dL (32.0-36.0); Mean Corpuscular Hemoglobin 27.4 pg (27.0-31.0); Mean Corpuscular Volume 85.9 fL (78.0-98.0); Mean Platelet Volume 8.8 fL (7.4-10.4); Platelet Count 174 10x3/uL (130-400); RBC Distribution Width 15.9 % (11.5-14.5); Red Blood Cell (RBC) Count 4.27 mill/uL (4.20-5.40)
[2024-02-26 15:18] LABS: ALT (SGPT) 15 U/L (8-55); AST (SGOT) 14 U/L (5-34); Albumin 3.2 g/dL (3.4-4.8); Alkaline Phosphatase 76 U/L (40-110); Anion Gap 11 mmol/L (10-20); BUN (Urea Nitrogen) 20 mg/dL (9.8-20.1); Bilirubin, Total 0.4 mg/dL (0.2-1.2); Calc. Creatinine Clearance 0 mL/min (70-130); Calcium 8.9 mg/dL (7.8-10.44); Carbon Dioxide 28 mmol/L (23-31); Chloride 103 mmol/L (98-107); Estimated GFR 98; Globulin 3.8 g/dL (2.4-3.5); Glucose 164 mg/dL (80-115); Potassium 4.2 mmol/L (3.5-5.1); Sodium 138 mmol/L (136-145)
== END 2024-02-26 15:00 | disposition home or self-care (01) ==
LOC: ONC/OP 14:07
PROVIDERS: ATTEND Internal Medicine
DX: L89.90 Pressure ulcer of unspecified site, unspecified stage (principal)
CPT/HCPCS: 80053; 85025; G0463; 36592; 99211

== ENCOUNTER 2024-03-17 13:44 | Outpatient (CLI) | payer MEDICARE ==
[~2024-03-17 13:44] MED LIST: Magnevist 469MG/ML 20 ML VIAL ONE
== END 2024-03-17 13:45 | disposition home or self-care (01) ==
LOC: MRI 13:44
PROVIDERS: ATTEND Nurse Practitioner Family
DX: L89.44 Pressure ulcer of contiguous site of back, buttock and hip, stage 4 (principal); M86.652 Other chronic osteomyelitis, left thigh; M86.651 Other chronic osteomyelitis, right thigh
CPT/HCPCS: 72197